=== PATIENT | male | born 1945 | race American Indian/Alaskan Native ===

== ENCOUNTER 2021-02-27 14:37 | Inpatient (IN) | payer MEDICARE ==
--- NOTE | 2021-02-27 14:50 | Event Note ---
ED Screening Note Date of service: 02/27/21 Time: 14:50 ED Screening Note: Patient complains of left-sided chest pain starting this morning States had some shortness of breath, denies any currently History of hypertension, CHF, and diabetes No new swelling per patient This initial assessment/diagnostic orders/clinical plan/treatment(s) is/are subject to change based on patients health status, clinical progression and re- assessment by fellow clinical providers in the ED. Further treatment and workup at subsequent clinical providers discretion. Patient/guardian urged not to elope from the ED as their condition may be serious if not clinically assessed and managed. Initial orders include: Labs EKG Chest x-ray
[2021-02-27 15:26] LABS: Basophils # (Auto) 0.2 K/mm3 (0.0-0.1); Basophils % (Auto) 2.3 % (0.0-1.8); Eosinophils # (Auto) 0.1 K/mm3 (0.0-0.4); Eosinophils % (Auto) 1.1 % (0.0-4.3); Hematocrit 41.1 % (35.5-45.6); Hemoglobin 13.3 gm/dl (11.8-15.2); Lymphocytes # (Auto) 1.7 K/mm3 (1.2-5.4); Lymphocytes % (Auto) 16.5 % (13.4-35.0); Mean Corpuscular HGB Conc 32 % (32-34); Mean Corpuscular Volume 88 fl (84-94); Monocytes # (Auto) 0.8 K/mm3 (0.0-0.8); Monocytes % (Auto) 7.7 % (0.0-7.3); Platelet Count 148 K/mm3 (140-440); Red Blood Count 4.66 M/mm3 (3.65-5.03); Red Cell Distribution Width 14.5 % (13.2-15.2)
--- NOTE | 2021-02-27 15:44 | XRay Report ---
CHEST 2 VIEWS INDICATION / CLINICAL INFORMATION: chest pain. COMPARISON: 05/11/2020 FINDINGS: SUPPORT DEVICES: None. HEART / MEDIASTINUM: No significant abnormality. LUNGS / PLEURA: No significant pulmonary or pleural abnormality. No pneumothorax. ADDITIONAL FINDINGS: No significant additional findings. IMPRESSION: 1. No acute findings. Signer Name: Jorge Dennis MD Signed: 02/27/2021 3:40 PM Workstation Name: [id number]
[2021-02-27 15:53] LABS: Alanine Aminotransferase 15 units/L (7-56); Albumin 3.7 g/dL (3.9-5); BUN/Creatinine Ratio 16; Blood Urea Nitrogen 19 mg/dL (9-20); Calcium 8.7 mg/dL (8.4-10.2); Hemolysis Index 11
[2021-02-27 16:06] LABS: HDL Cholesterol 47 mg/dL (40-59); LDL Cholesterol,Direct 55 mg/dL (50-130)
--- NOTE | 2021-02-27 21:14 | Emergency Department Report ---
ED Chest Pain HPI - General Chief Complaint: Chest Pain Stated Complaint: CHEST PAINS PUI?: No Time Seen by Provider: 02/27/21 21:00 Source: patient Mode of arrival: Ambulatory Limitations: No Limitations - History of Present Illness Initial Comments: Patient is a 75-year-old male who presents emergency room with complaints of s ubsternal chest pain. Patient states that the chest pain is rating to his right chest. Patient states it started this morning. Patient states the chest pain is a 4 out of 10. Patient states it is a sharp pain. Patient states the pain is worse with deep breath, exertion. Patient states the chest pain is better with rest. Patient denies fever and chills. Patient states he has a history of diabetes, hypertension, hyperlipidemia, obstructive sleep apnea, hypertension. Patient dates his last A1c was done 2 weeks ago and it was 6.4%. Patient denies recent travel. Patient denies recent international travel. Patient denies exposure to the novel coronavirus. Patient denies sick contacts. Patient denies fever and chills. Patient denies cough. Patient denies diarrhea. Patient denies coming in contact with anybody with symptoms of the novel coronavirus. MD Complaint: chest pain -: Sudden Onset: during rest Pain Location: substernal, right chest Pain Radiation: none Severity scale (0 -10): 5 Quality: sharp Consistency: constant Improves With: rest Worsens With: exertion re: dyspnea. denies: nausea, vomting, diaphoresis, sense of impending doom Other Symptoms: leg swelling. denies: cough, fever, syncope, rash, acid taste in mouth, palpitations, burping Treatments Prior to Arrival: aspirin Aspirin use within the Past 7 Days: (1) Yes - Related Data On Oral Contraceptives: No Previous Rx's Medication Instructions Recorded Last Taken Type Ondansetron [Zofran Odt] 4 mg PO Q8HR PRN #14 tab.rapdis 05/11/20 Unknown Rx traMADoL [Ultram 50 MG tab] 50 mg PO Q4HR PRN #14 tablet 05/11/20 Unknown Rx Allergies Allergy/AdvReac Type Severity Reaction Status Date / Time No Known Allergies Allergy Unverified 05/11/20 14:29 Heart Score - HEART Score History: Moderately suspicious EKG: Non-specific Age: > 65 Risk factors: > 3 risk factors or hx of atherosclerotic disease Troponin: 1-3x normal limit HEART Score: 7 - EKG Read Time Time EKG Completed: 14:55 EKG Read Time: 15:00 ED Review of Systems ROS: Stated complaint: CHEST PAINS Other details as noted in HPI Constitutional: denies: chills, fever Eyes: denies: eye pain, eye discharge, vision change ENT: denies: ear pain, throat pain Respiratory: shortness of breath. denies: cough, wheezing Cardiovascular: as per HPI, chest pain, dyspnea on exertion. denies: palpitations Endocrine: no symptoms reported Gastrointestinal: denies: abdominal pain, nausea, diarrhea Genitourinary: denies: urgency, dysuria Musculoskeletal: denies: back pain, joint swelling, arthralgia Skin: denies: rash, lesions Neurological: denies: headache, weakness, paresthesias Psychiatric: denies: anxiety, depression Hematological/Lymphatic: denies: easy bleeding, easy bruising ED Past Medical Hx - Past Medical History Previous Medical History?: Yes Hx Hypertension: Yes Hx Congestive Heart Failure: Yes - Surgical History Past Surgical History?: Yes Additional Surgical History: KNEE REPLACEMENT X 2 AND 6 BACK SURGERIES - Family History Family history: no significant - Social History Smoking Status: Never Smoker Substance Use Type: None - Medications Home Medications: Home Medications Medication Instructions Recorded Confirmed Last Taken Type Ondansetron [Zofran Odt] 4 mg PO Q8HR PRN #14 tab.rapdis 05/11/20 Unknown Rx traMADoL [Ultram 50 MG tab] 50 mg PO Q4HR PRN #14 tablet 05/11/20 Unknown Rx ED Physical Exam - General Limitations: No Limitations General appearance: alert, in no apparent distress - Head Head exam: Present: atraumatic, normocephalic - Eye Eye exam: Present: normal appearance - ENT ENT exam: Present: mucous membranes moist - Neck Neck exam: Present: normal inspection - Respiratory Respiratory exam: Present: normal lung sounds bilaterally. Absent: respiratory distress, wheezes, rales - Cardiovascular Cardiovascular Exam: Present: regular rate, normal rhythm. Absent: systolic murmur, diastolic murmur, rubs, gallop - GI/Abdominal GI/Abdominal exam: Present: soft, normal bowel sounds. Absent: distended, tenderness, guarding - Rectal Rectal exam: Present: deferred - Extremities Exam Extremities exam: Present: normal inspection - Back Exam Back exam: Present: normal inspection - Neurological Exam Neurological exam: Present: alert, oriented X3 - Psychiatric Psychiatric exam: Present: normal affect, normal mood - Skin Skin exam: Present: warm, dry, intact, normal color. Absent: rash ED Course Vital Signs 02/27/21 14:48 Temperature 98.3 F Pulse Rate 69 Respiratory 20 Rate Blood Pressure 163/74 [Right] O2 Sat by Pulse 97 Oximetry - Reevaluation(s) Reevaluation #1: I discussed all results with patient. I discussed plan of care with patient. Patient agrees with plan of care and admission. Patient to be admitted to the hospitalist service. 02/27/21 21:25 - Consultations Consultation #1: hospitalist consulted for admission. Hospitalist to admit patient. 02/27/21 21:26 MEENU score - Meenu Score Age > 65: (1) Yes Aspirin use within the Past 7 Days: (0) No 3 or more CAD Risk Factors: (1) Yes 2 or more Angina events in past 24 hrs: (0) No Known CAD with more than 50% Stenosis: (0) No Elevated Cardiac Markers: (1) Yes ST Deviation Greater than 0.5mm: (0) No MEENU Score: 3 ED Medical Decision Making - Lab Data Result diagrams: 02/27/21 15:03 02/27/21 15:03 - EKG Data -: EKG Interpreted by Me EKG shows normal: sinus rhythm, axis, intervals, ST-T waves Rate: normal - EKG Data Interpretation: LVH, other (lbbb) - Radiology Data Radiology results: report reviewed, image reviewed interpreted by me: Chest x-ray: No pneumonia, no pneumothorax, no foreign body, no osseous findings, no acute findings CHEST 2 VIEWS INDICATION / CLINICAL INFORMATION: chest pain. COMPARISON: 05/11/2020 FINDINGS: SUPPORT DEVICES: None. HEART / MEDIASTINUM: No significant abnormality. LUNGS / PLEURA: No significant pulmonary or pleural abnormality. No pneumothorax. ADDITIONAL FINDINGS: No significant additional findings. IMPRESSION: 1. No acute findings. - Medical Decision Making Patient is a 75-year-old male who presents emergency room with complaints of chest pain and shortness of breath. Patient symptoms started earlier in the day of the visit. Patient had labs done which were essentially unremarkable except for an elevated troponin. Patient second troponin was negative. Patient's BMP shows mild elevation. Patient had a chest x-ray which was negative for acute findings. No CHF changes. Patient had an EKG done which showed a left bundle branch block. No ST changes. I personally reviewed the EKG and the chest x- ray. Patient is high risk and has multiple cardiac comorbidities. Patient will be admitted to the hospital service for further evaluation and treatment and rule out ACS. Critical care time documented due to the multiple reassessments, prolonged time at the bedside, interpretation of diagnostics and labs. - Differential Diagnosis acs, chest pain, shortness of breath, volume overload, Critical Care Time: Yes Critical care time in (mins) excluding proc time.: 35 Critical care attestation.: If time is entered above; I have spent that time in minutes in the direct care of this critically ill patient, excluding procedure time. Critical Care Time: 35 minutes ED Disposition Clinical Impression: SOB (shortness of breath), Elevated troponin Chest pain Qualifiers: Chest pain type: unspecified Qualified Code(s): R07.9 - Chest pain, unspecified Disposition: 09 OP ADMIT IP TO THIS HOSP Is pt being admited?: Yes Does the pt Need Aspirin: No Condition: Critical Time of Disposition: 21:35
[2021-02-27] MEDS ORDERED: ASPIRIN 325 MG TAB PO ONE (21:17)
--- NOTE | 2021-02-27 22:20 | History and Physical Report ---
History of Present Illness Date of examination: 02/27/21 Date of admission: 02/27/21 21:31 Chief complaint: chest pain Shortness of breath History of present illness: Patient is a 75-year-old male who presents emergency room with complaints of substernal chest pain. Patient states that the chest pain is rating to his right chest. Patient states it started this morning. Patient states the chest pain is a 4 out of 10. Patient states it is a sharp pain. Patient states the pain is worse with deep breath, exertion. Patient states the chest pain is better with rest. Patient denies fever and chills. Patient states he has a history of diabetes, hypertension, hyperlipidemia, obstructive sleep apnea, hypertension. Patient dates his last A1c was done 2 weeks ago and it was 6.4%. ED work-up WBC 10.5, hemoglobin 13.3 hematocrit 41.1, platelets 148, sodium 135, potassium 3.8, creatinine 1.2, serum glucose 111, troponin less than 0.01, albumin 3.7, lipid profile within normal level. Chest x-ray done no acute finding. Patient seen in ED at bedside alert and oriented x3 bilateral lower leg edema noted. Patient came with chest pain, he reports chest pain pain level of 8/10 at the time of assessment. Patient is on sublingual nitrates as needed for chest pain he reported history of diabetes CAD hyperlipidemia on statin, history of high blood pressure and sleep apnea. Patient also has a history of bilateral knee replacements. He denies alcohol, illicit drug use, and tobacco use. I reviewed patient medical record, medical record and vital signs. Director Of [employer] consulted and echocardiogram ordered. Past History Past Medical History: CAD, diabetes, heart failure, hyperlipidemia, other (sleep apnea) Past Surgical History: total knee replacement Social history: Lives alone Family history: diabetes, hypertension Medications and Allergies Allergies Allergy/AdvReac Type Severity Reaction Status Date / Time No Known Allergies Allergy Unverified 05/11/20 14:29 Home Medications Medication Instructions Recorded Confirmed Last Taken Type Aspirin [Adult Aspirin] 81 mg PO DAILY 02/27/21 02/27/21 Unknown History Docusate Sodium [Colace] 100 mg PO BID 02/27/21 02/27/21 Unknown History Ergocalciferol (Vitamin D2) 50 mcg PO DAILY 02/27/21 02/27/21 Unknown History [Vitamin D2] Furosemide [Lasix TAB] 40 mg PO QDAY 02/27/21 02/27/21 Unknown History Glimepiride [Amaryl] 2 mg PO DAILY 02/27/21 02/27/21 Unknown History Hydralazine HCl 50 mg PO BID 02/27/21 02/27/21 Unknown History Isosorbide Dinitrate [Isosorbide 40 mg PO DAILY 02/27/21 02/27/21 Unknown History Dinitrate ER] Simvastatin 20 mg PO DAILY 02/27/21 02/27/21 Unknown History amLODIPine [Norvasc] 5 mg PO DAILY 02/27/21 02/27/21 Unknown History carvediloL [Coreg] 25 mg PO BID 02/27/21 02/27/21 Unknown History lisinopriL [Zestril TAB] 40 mg PO QDAY 02/27/21 02/27/21 Unknown History Review of Systems Constitutional: fatigue, weakness Ears, nose, mouth and throat: no epistaxis, no bleeding gums, no dental pain Cardiovascular: chest pain, edema, shortness of breath, high blood pressure, leg edema Respiratory: shortness of breath Gastrointestinal: no abdominal pain Genitourinary Male: no dysuria Rectal: no pain Musculoskeletal: no neck stiffness, no neck pain Integumentary: no rash, no pruritis Neurological: no head injury Psychiatric: no suicidal ideation, no disorientation Endocrine: no polyuria Hematologic/Lymphatic: no easy bruising, no easy bleeding Allergic/Immunologic: no urticaria Exam - Constitutional Vitals: Temp Pulse Resp BP Pulse Ox 98.3 F 67 18 166/83 100 02/27/21 14:48 02/27/21 21:45 02/27/21 21:56 02/27/21 21:45 02/27/21 21:56 General appearance: Present: mild distress, obese - EENT Eyes: Present: PERRL ENT: hearing intact, clear oral mucosa - Neck Neck: Present: supple, normal ROM - Respiratory Respiratory effort: normal Respiratory: bilateral: CTA - Cardiovascular Heart rate: 67 Heart Sounds: Present: S1 & S2. Absent: rub, click - Extremities Extremities: pulses symmetrical, No edema Peripheral Pulses: within normal limits - Abdominal General gastrointestinal: Present: soft, non-tender, non-distended, normal bowel sounds Male genitourinary: Present: normal - Integumentary Integumentary: Present: clear, warm, dry - Musculoskeletal Musculoskeletal: gait normal, strength equal bilaterally - Psychiatric Psychiatric: appropriate mood/affect, intact judgment & insight, cooperative - Neurologic Neurologic: CNII-XII intact, moves all extremities - Allied Health Allied health notes reviewed: nursing HEART Score - HEART Score EKG: Non-specific Age: > 65 Risk factors: > 3 risk factors or hx of atherosclerotic disease Troponin: Troponin T < 0.010 ng/mL (0.00-0.029) 02/27/21 17:55 Troponin: 1-3x normal limit Results - Labs CBC & Chem 7: 02/27/21 15:03 02/27/21 15:03 Labs: Abnormal lab results 02/27/21 02/27/21 Range/Units 15:03 15:03 [place] % (Auto) 7.7 H (0.0-7.3) % Baso % (Auto) 2.3 H (0.0-1.8) % Baso # (Auto) 0.2 H (0.0-0.1) K/mm3 Seg Neutrophils % 72.4 H (40.0-70.0) % Sodium 135 L (137-145) mmol/L Glucose 111 H (75-100) mg/dL Troponin T 0.063 H (0.00-0.029) ng/mL Albumin 3.7 L (3.9-5) g/dL Assessment and Plan - Patient Problems (1) Chest pain Current Visit: Yes Status: Acute Qualifiers: Chest pain type: unspecified Qualified Code(s): R07.9 - Chest pain, unsp ecified Plan to address problem: Continue cardioprotective measures Antiplatelet, BB, statin, and diuretics Echocardiogram ordered and planning associate consulted. (2) SOB (shortness of breath) Current Visit: Yes Status: Acute Plan to address problem: Shortness of breath secondary to CHF Patient diuretics. Monitor ABG and will place on oxygen supplement if needed (3) Diabetes Current Visit: Yes Status: Acute Plan to address problem: Monitor blood sugar with sliding scale protocol Check hemoglobin A1c We will resume home antihyperglycemic agent (4) Hypertension Current Visit: Yes Status: Acute Plan to address problem: Monitor blood pressure level Resume home antihypertensive (5) DVT prophylaxis Current Visit: Yes Status: Acute Plan to address problem: Subcutaneous Lovenox (6) Full code status Current Visit: Yes Status: Acute Plan to address problem: Patient is full code
[2021-02-27] MEDS ORDERED: ALUM-MAG HYDROXIDE-SIMETHICONE 200-200-20MG/5ML ORAL LIQD 30 ML PO PRN (22:23)
[2021-02-27] MEDS ORDERED: ONDANSETRON 4 MG/2 ML INJ IV PRN (22:23)
[2021-02-27] MEDS ORDERED: ACETAMINOPHEN 325 MG TAB PO PRN (22:23)
[2021-02-27] MEDS ORDERED: METOCLOPRAMIDE 10 MG/2 ML INJ IV PRN (22:23)
[2021-02-27] MEDS ORDERED: NITROGLYCERIN 0.4 MG TAB SUBL SL PRN (22:23)
[2021-02-27] MEDS ORDERED: MAGNESIUM HYDROXIDE (MOM) ORAL LIQD UDC PO PRN (22:23)
[2021-02-27] MEDS ORDERED: traMADol 50 MG TAB PO PRN (22:35)
[2021-02-27] MEDS ORDERED: traZODone 50 MG TAB PO PRN (22:35)
[2021-02-27] MEDS ORDERED: hydrALAZINE 20 MG/1 ML INJ IV PRN (22:37)
[2021-02-28] MEDS ORDERED: hydrALAZINE 20 MG/1 ML INJ IV PRN (00:48)
[2021-02-28 03:16] LABS: Basophils % (Auto) 0.4 % (0.0-1.8); Eosinophils # (Auto) 0.1 K/mm3 (0.0-0.4); Eosinophils % (Auto) 1.5 % (0.0-4.3); Hematocrit 39.7 % (35.5-45.6); Hemoglobin 13.1 gm/dl (11.8-15.2); Lymphocytes # (Auto) 1.7 K/mm3 (1.2-5.4); Lymphocytes % (Auto) 17.9 % (13.4-35.0); Mean Corpuscular HGB Conc 33 % (32-34); Mean Corpuscular Volume 89 fl (84-94); Monocytes # (Auto) 0.9 K/mm3 (0.0-0.8); Platelet Count 119 K/mm3 (140-440); Red Blood Count 4.44 M/mm3 (3.65-5.03); Red Cell Distribution Width 14.7 % (13.2-15.2)
[2021-02-28 03:32] LABS: BUN/Creatinine Ratio 14; Blood Urea Nitrogen 15 mg/dL (9-20); Calcium 8.6 mg/dL (8.4-10.2); Hemolysis Index 9
[2021-02-28] MEDS: FUROSEMIDE 40 MG/4 ML INJ IV SCH ×2 (06:23→17:47)
[2021-02-28] MEDS ORDERED: POTASSIUM CHLORIDE 10 MEQ 10 MEQ/100 ML BAG IV SCH (08:00)
[2021-02-28] MEDS ORDERED: POTASSIUM CHLORIDE ER 20 MEQ TAB PO NR (08:32)
[2021-02-28 10:37] LABS: Bacteria,Urine 1+ /HPF (Negative); Bilirubin,Urine NEG (Negative); Blood,Urine NEG (Negative); Calcium Oxalate Crystals,Urine 1+; Color,Urine Straw (Yellow); Mucus,Urine FEW /HPF; Protein,Urine <15 mg/dL mg/dL (Negative); RBC,Urine < 1.0 /HPF (0.0-6.0); Urobilinogen,Urine < 2.0 mg/dL (<2.0)
--- NOTE | 2021-02-28 10:41 | Consultation ---
History of Present Illness Consult date: 02/28/21 Requesting physician: FRAN ROCK Consult reason: chest pain History of present illness: 75-year-old male with osteoarthritis hypertension history of nonischemic cardiomyopathy echo done in April in [place] [facility] shows normal LV function patient had cardiac catheterization in [place] 10 years ago shows normal coronaries for nonischemic cardiomyopathy. Patient presents with chest pain over 24 hours ago on exam is reproducible with deep inspiration and palpation. Patient would hurt when his arms would move. Patient was given tramadol with improvement. Patient mobility is limited because of his osteoarthritis. Uses a walker. Patient gets problems with more than 50 feet. Denies any nausea vomiting fever chills or syncope. Patient initial troponin was elevated but repeat was negative EKG is incomplete left bundle no change from EKG done with [place] [facility] Past History Past Medical History: CAD, diabetes, heart failure, hyperlipidemia, other (sleep apnea) Past Surgical History: total knee replacement Social history: Lives alone Family history: diabetes, hypertension Medications and Allergies Allergies Allergy/AdvReac Type Severity Reaction Status Date / Time No Known Allergies Allergy Unverified 05/11/20 14:29 Home Medications Medication Instructions Recorded Confirmed Last Taken Type Aspirin [Adult Aspirin] 81 mg PO DAILY 02/27/21 02/27/21 Unknown History Docusate Sodium [Colace] 100 mg PO BID 02/27/21 02/27/21 Unknown History Ergocalciferol (Vitamin D2) 50 mcg PO DAILY 02/27/21 02/27/21 Unknown History [Vitamin D2] Furosemide [Lasix TAB] 40 mg PO QDAY 02/27/21 02/27/21 Unknown History Glimepiride [Amaryl] 2 mg PO DAILY 02/27/21 02/27/21 Unknown History RX: Hydralazine HCl 50 mg PO BID 02/27/21 02/27/21 Unknown History RX: Isosorbide Dinitrate 40 mg PO DAILY 02/27/21 02/27/21 Unknown History [Isosorbide Dinitrate ER] RX: Simvastatin 20 mg PO DAILY 02/27/21 02/27/21 Unknown History amLODIPine [Norvasc] 5 mg PO DAILY 02/27/21 02/27/21 Unknown History carvediloL [Coreg] 25 mg PO BID 02/27/21 02/27/21 Unknown History lisinopriL [Zestril TAB] 40 mg PO QDAY 02/27/21 02/27/21 Unknown History Active Meds: Active Medications Acetaminophen (Acetaminophen 325 Mg Tab) 650 mg PO Q4H PRN PRN Reason: Pain MILD(1-3)/Fever >100.5/WYLIE Al Hydrox/Mg Hydrox/Simethicone (Alum-Mag Hydroxide-Simethicone [id number]/5ml Oral Liqd 30 Ml) 30 ml PO Q4H PRN PRN Reason: Indigestion Aspirin (Aspirin Ec 81 Mg Tab) 81 mg PO QDAY [facility] Atorvastatin Calcium (Atorvastatin 40 Mg Tab) 40 mg PO QHS BACILIO Cholecalciferol (Cholecalciferol (Vit D3) 1000 Unit (25 Mcg) Tab) 1,000 unit PO QDAY BACILIO Enoxaparin Sodium (Enoxaparin 40 Mg/0.4 Ml Inj) 40 mg SUB-Q QDAY BACILIO; Protocol Famotidine (Famotidine 20 Mg/2 Ml Inj) 20 mg IV BID BACILIO Furosemide (Furosemide 40 Mg/4 Ml Inj) 40 mg IV BID@0600,1800 [facility] Last Admin: 02/28/21 06:23 Dose: 40 mg Documented by: Glimepiride (Glimepiride 2 Mg Tab) 2 mg PO QDDIAB [facility] Hydralazine HCl (Hydralazine 20 Mg/1 Ml Inj) 5 mg IV Q4H PRN PRN Reason: Hypertension Hydralazine HCl (Hydralazine 20 Mg/1 Ml Inj) 5 mg IV Q4H PRN PRN Reason: Hypertension Magnesium Hydroxide (Magnesium Hydroxide (Mom) Oral Liqd Udc) 30 ml PO Q4H PRN PRN Reason: Constipation Metoclopramide HCl (Metoclopramide 10 Mg/2 Ml Inj) 10 mg IV Q6H PRN PRN Reason: Nausea And Vomiting Nitroglycerin (Nitroglycerin 0.4 Mg Tab Subl) 0.4 mg SL .Q5MIN PRN PRN Reason: Chest Pain Ondansetron HCl (Ondansetron 4 Mg/2 Ml Inj) 4 mg IV Q8H PRN PRN Reason: Nausea And Vomiting Potassium Chloride (Potassium Chloride Er 20 Meq Tab) 40 meq PO QDAY B[facility]ILIO Potassium Chloride (Potassium Chloride Er 20 Meq Tab) 40 meq PO ONCE NR Stop: 02/28/21 11:00 Senna (Sennosides 8.6 Mg Tab) 8.6 mg PO Q12HR [facility] Sodium Chloride (Sodium Chloride 0.9% 10 Ml Flush Syringe) 10 ml IV BID BACILIO Sodium Chloride (Sodium Chloride 0.9% 10 Ml Flush Syringe) 10 ml IV PRN PRN PRN Reason: LINE FLUSH Tramadol HCl (Tramadol 50 Mg Tab) 50 mg PO Q4H PRN PRN Reason: Pain, Moderate (4-6) Last Admin: 02/28/21 08:31 Dose: 50 mg Documented by: Trazodone HCl (Trazodone 50 Mg Tab) 50 mg PO QHS PRN PRN Reason: Insomnia Review of Systems All systems: negative (As per the HPI) Physical Examination Vital Signs Temp Pulse Resp BP Pulse Ox 98.3 F 69 20 163/74 97 02/27/21 14:48 02/27/21 14:48 02/27/21 14:48 02/27/21 14:48 02/27/21 14:48 General appearance: no acute distress, well-nourished HEENT: Positive: PERRL, Mucus Membranes Moist Neck: Positive: neck supple, trachea midline Cardiac: Positive: Reg Rate and Rhythm, S1/S2. Negative: Audible Murmur Lungs: Positive: clear to auscultation, Normal Breath Sounds Neuro: Positive: Grossly Intact Abdomen: Positive: Soft, Active Bowel Sounds. Negative: Tender, Distended Male genitourinary: Positive: normal Skin: Positive: Clear Incision: Cardiac Cath Site Musculoskeletal: No Pain, Normal Range of Motion Extremities: Present: normal. Absent: edema Results 02/28/21 02:41 02/28/21 02:41 Cardiac Enzymes 02/27/21 Range/Units 15:03 AST 14 (5-40) units/L Lipids 02/27/21 Range/Units 15:03 Triglycerides 97 (2-149) mg/dL Cholesterol 113 (50-199) mg/dL HDL Cholesterol 47 (40-59) mg/dL Cholesterol/HDL Ratio 2.40 % CBC 02/27/21 02/28/21 Range/Units 15:03 02:41 WBC 10.5 9.3 (4.5-11.0) K/mm3 RBC 4.66 4.44 (3.65-5.03) M/mm3 Hgb 13.3 13.1 (11.8-15.2) gm/dl Hct 41.1 39.7 (35.5-45.6) % Plt Count 148 119 L (140-440) K/mm3 Lymph # (Auto) 1.7 1.7 (1.2-5.4) K/mm3 [place] # (Auto) 0.8 0.9 H (0.0-0.8) K/mm3 Eos # (Auto) 0.1 0.1 (0.0-0.4) K/mm3 Baso # (Auto) 0.2 H 0.0 (0.0-0.1) K/mm3 Comprehensive Metabolic Panel 02/27/21 02/28/21 Range/Units 15:03 02:41 Sodium 135 L 138 (137-145) mmol/L Potassium 3.8 3.5 L (3.6-5.0) mmol/L Chloride 103.2 103.4 (98-107) mmol/L Carbon Dioxide 22 22 (22-30) mmol/L BUN 19 15 (9-20) mg/dL Creatinine 1.2 1.1 (0.8-1.3) mg/dL Glucose 111 H 107 H (75-100) mg/dL Calcium 8.7 8.6 (8.4-10.2) mg/dL AST 14 (5-40) units/L ALT 15 (7-56) units/L Alkaline Phosphatase 87 (35-129) units/L Total Protein 7.0 (6.3-8.2) g/dL Albumin 3.7 L (3.9-5) g/dL EKG interpretations - Telemetry EKG Rhythm: Sinus Rhythm (Sinus rhythm incomplete left bundle) Assessment and Plan 75-year-old male with morbid obesity obesity hypoventilation nonischemic cardiomyopathy with normalization of LV function reproducible chest pain on palpation inspiration chronic debilitation secondary osteoarthritis use a walker abnormal EKG sinus rhythm incomplete left bundle has normal LV function echocardiogram done in April 2020 initial troponin was elevated but repeat was negative repeat that if negative may be discharged from cardiovascular point of view we will give patient anti-inflammatories patient advised to follow-up in the office. - Patient Problems (1) Chest pain Current Visit: Yes Status: Acute Qualifiers: Chest pain type: chest pain on breathing Qualified Code(s): R07.1 - Chest pain on breathing; R07.81 - Pleurodynia (2) Diabetes Current Visit: Yes Status: Chronic Qualifiers: Diabetes mellitus type: type 2 (3) Hypertension Current Visit: Yes Status: Chronic Qualifiers: Hypertension type: essential hypertension Qualified Code(s): I10 - Essential (primary) hypertension (4) SOB (shortness of breath) Current Visit: Yes Status: Chronic (5) Sleep apnea Current Visit: Yes Status: Acute
[2021-02-28] MEDS: ENOXAPARIN 40 MG/0.4 ML INJ SUB-Q SCH (10:49)
[2021-02-28] MEDS: POTASSIUM CHLORIDE ER 20 MEQ TAB PO SCH (10:49)
[2021-02-28] MEDS: CHOLECALCIFEROL (VIT D3) 1000 UNIT (25 mcg) TAB PO SCH (10:49)
[2021-02-28] MEDS: ASPIRIN EC 81 MG TAB PO SCH (10:49)
[2021-02-28] MEDS: FAMOTIDINE 20 MG/2 ML INJ IV SCH ×2 (10:49→22:30)
[2021-02-28] MEDS: SENNOSIDES 8.6 MG TAB PO SCH ×2 (10:49→22:30)
[2021-02-28] MEDS: GLIMEPIRIDE 2 MG TAB PO SCH (10:55)
--- NOTE | 2021-02-28 13:19 | Discharge Summary ---
Providers - Providers Date of Admission: 02/27/21 21:31 Date of discharge: 02/28/21 Attending physician: FRAN ROCK 02/27/21 22:28 Consult to Physician [CONS] Stat Comment: Consulting Provider: DANIEL KRISHNAMURTHY Physician Instructions: Reason For Exam: chest pain Primary care physician: HOME CARE MUSIC THERAPIST Hospitalization Condition: Critical Hospital course: Patient is a 75-year-old male who presents emergency room with complaints of substernal chest pain. Patient states that the chest pain is rating to his right chest. Patient states it started this morning. Patient states the chest pain is a 4 out of 10. Patient states it is a sharp pain. Patient states the pain is worse with deep breath, exertion. Patient states the chest pain is better with rest. Patient denies fever and chills. Patient states he has a history of diabetes, hypertension, hyperlipidemia, obstructive sleep apnea, hypertension. Patient dates his last A1c was done 2 weeks ago and it was 6.4%. ED work-up WBC 10.5, hemoglobin 13.3 hematocrit 41.1, platelets 148, sodium 135, potassium 3.8, creatinine 1.2, serum glucose 111, troponin less than 0.01, albumin 3.7, lipid profile within normal level. Chest x-ray done no acute finding. Patient seen in ED at bedside alert and oriented x3 bilateral lower leg edema noted. Patient came with chest pain, he reports chest pain pain level of 8/10 at the time of assessment. Patient is on sublingual nitrates as needed for chest pain he reported history of diabetes CAD hyperlipidemia on statin, history of high blood pressure and sleep apnea. Patient also has a history of bilateral knee replacements. He denies alcohol, illicit drug use, and tobacco use. I reviewed patient medical record, medical record and vital signs. Strategy Intern consulted and echocardiogram ordered. Hospital course Patient's repeat troponin remain negative. He denies any significant chest pain and has discomfort around the right side of the chest that is reproducible on palpation. Patient will be prescribed anti-inflammatory agents and will follow up with cardiology in the office. He agrees with management Disposition: TO HOME OR SELFCARE Final Discharge Diagnosis (Prints w/discharge instructions): Chest pain- musculoskeletal Time spent for discharge: 20 minutes Core Measure Documentation - Palliative Care Palliative Care/ Comfort Measures: Not Applicable - Core Measures Any of the following diagnoses?: none Exam - Physical Exam Narrative exam: VITAL SIGNS: Reviewed. GENERAL: Awake HEAD: No signs of head trauma. EYES: Pupils are equal. Extraocular motions intact. MOUTH: Oropharynx is normal. NECK: No adenopathy, no JVD. CHEST: Chest with diminished breath sounds bilaterally. No wheezes, rales, or rhonchi. CARDIAC: normal S1 and S2, without murmurs, gallops, or rubs. ABDOMEN: Soft, non tender and non distended. No rebound or guarding, and no masses palpated. Bowel Sounds normal. MUSCULOSKELETAL: No edema NEUROLOGIC EXAM: Alert and oriented x3. No focal neurologic deficits SKIN: No obvious lesions - Constitutional Vitals: Temp Pulse Resp BP Pulse Ox 98.7 F 74 20 191/84 100 02/28/21 07:45 02/28/21 12:00 02/28/21 07:45 02/28/21 07:45 02/28/21 07:45 Plan Diet: low fat, low cholesterol, low salt, diabetic Additional Instructions: Continue naproxen as ordered. Follow-up with cardiology team [] in the office in 1 week. Phone number [phone] Follow up with: DELFINA BREWER MD [Primary Care Provider] - 3-5 Days TOMI PEARCE MD [Staff Physician] - 7 Days Prescriptions: Naproxen 500 mg PO BID #6 tablet
[2021-03-01] MEDS: FUROSEMIDE 40 MG/4 ML INJ IV SCH (05:57)
[2021-03-01] MEDS: ASPIRIN EC 81 MG TAB PO SCH (09:19)
[2021-03-01] MEDS: SENNOSIDES 8.6 MG TAB PO SCH ×2 (09:19→22:37)
[2021-03-01] MEDS: CHOLECALCIFEROL (VIT D3) 1000 UNIT (25 mcg) TAB PO SCH (09:19)
[2021-03-01] MEDS: FAMOTIDINE 20 MG/2 ML INJ IV SCH ×2 (09:19→22:38)
[2021-03-01] MEDS: GLIMEPIRIDE 2 MG TAB PO SCH (09:19)
[2021-03-01] MEDS: ENOXAPARIN 40 MG/0.4 ML INJ SUB-Q SCH (09:20)
[2021-03-01] MEDS: POTASSIUM CHLORIDE ER 20 MEQ TAB PO SCH (09:22)
--- NOTE | 2021-03-01 10:36 | Progress Note ---
Assessment and Plan Assessment and plan: #Chest pain Troponin slightly positive Cardiology on board Plan for stress test tomorrow N.p.o. after midnight #Congestive heart failure Patient is chronically short of breath Continue medication #Diabetes mellitus Continue insulin regimen #Hypertension Continue blood pressure medication #DVT prophylaxis-Lovenox History Interval history: 75-year-old male with a medical history of diabetes, coronary artery disease, hyperlipidemia, hypertension, ANNIA, bilateral knee replacements, chronic back pain who presents emergency room with complaints of substernal chest pain. Patient states that the chest pain is rating to his right chest. He rates it at 4/10 in severity. Due to his symptoms, he presented to the hospital. He had the ER, his EKG showed no acute changes. His troponin was 0.06. He was admitted to the hospital for evaluation. Cardiology consulted 02/28. Patients repeat troponin was 0.01. Repeat troponin after this was 0.06. Discharge cancelled. Plan for stress test on Thursday 03/01. He denies any chest pain this AM. Cardiology following. Possible stress test tomorrow Hospitalist Physical - Physical exam Narrative exam: VITAL SIGNS: Reviewed. GENERAL: Awake HEAD: No signs of head trauma. EYES: Pupils are equal. Extraocular motions intact. MOUTH: Oropharynx is normal. NECK: No adenopathy, no JVD. CHEST: Chest with diminished breath sounds bilaterally. No wheezes, rales, or rhonchi. CARDIAC: normal S1 and S2, without murmurs, gallops, or rubs. ABDOMEN: Soft, non tender and non distended. No rebound or guarding, and no masses palpated. Bowel Sounds normal. MUSCULOSKELETAL: No edema NEUROLOGIC EXAM: Alert and oriented x3. No focal neurologic deficits SKIN: No obvious lesions - Constitutional Vitals: Temp Pulse Resp BP Pulse Ox 98.7 F 83 18 173/76 94 03/01/21 08:08 03/01/21 08:08 03/01/21 08:08 03/01/21 09:40 03/01/21 08:08 HEART Score - HEART Score EKG: Non-specific Age: > 65 Risk factors: > 3 risk factors or hx of atherosclerotic disease Troponin: Troponin T 0.068 ng/mL (0.00-0.029) H D 02/28/21 14:09 Troponin: 1-3x normal limit Results - Labs CBC & Chem 7: 02/28/21 02:41 02/28/21 02:41 Labs: Laboratory Last Values WBC 9.3 K/mm3 (4.5-11.0) 02/28/21 02:41 RBC 4.44 M/mm3 (3.65-5.03) 02/28/21 02:41 Hgb 13.1 gm/dl (11.8-15.2) 02/28/21 02:41 Hct 39.7 % (35.5-45.6) 02/28/21 02:41 MCV 89 fl (84-94) 02/28/21 02:41 MCH 30 pg (28-32) 02/28/21 02:41 MCHC 33 % (32-34) 02/28/21 02:41 RDW 14.7 % (13.2-15.2) 02/28/21 02:41 Plt Count 119 K/mm3 (140-440) L 02/28/21 02:41 Lymph % (Auto) 17.9 % (13.4-35.0) 02/28/21 02:41 [place] % (Auto) 10.0 % (0.0-7.3) H 02/28/21 02:41 Eos % (Auto) 1.5 % (0.0-4.3) 02/28/21 02:41 Baso % (Auto) 0.4 % (0.0-1.8) 02/28/21 02:41 Lymph # (Auto) 1.7 K/mm3 (1.2-5.4) 02/28/21 02:41 [place] # (Auto) 0.9 K/mm3 (0.0-0.8) H 02/28/21 02:41 Eos # (Auto) 0.1 K/mm3 (0.0-0.4) 02/28/21 02:41 Baso # (Auto) 0.0 K/mm3 (0.0-0.1) 02/28/21 02:41 Seg Neutrophils % 70.2 % (40.0-70.0) H 02/28/21 02:41 Seg Neutrophils # 6.5 K/mm3 (1.8-7.7) 02/28/21 02:41 Sodium 138 mmol/L (137-145) 02/28/21 02:41 Potassium 3.5 mmol/L (3.6-5.0) L 02/28/21 02:41 Chloride 103.4 mmol/L (98-107) 02/28/21 02:41 Carbon Dioxide 22 mmol/L (22-30) 02/28/21 02:41 Anion Gap 16 mmol/L 02/28/21 02:41 BUN 15 mg/dL (9-20) 02/28/21 02:41 Creatinine 1.1 mg/dL (0.8-1.3) 02/28/21 02:41 Estimated GFR > 60 ml/min 02/28/21 02:41 BUN/Creatinine Ratio 14 % 02/28/21 02:41 Glucose 107 mg/dL (75-100) H 02/28/21 02:41 Hemoglobin A1c 6.9 % (4-6) H 02/28/21 02:41 Calcium 8.6 mg/dL (8.4-10.2) 02/28/21 02:41 Total Bilirubin 0.30 mg/dL (0.1-1.2) 02/27/21 15:03 AST 14 units/L (5-40) 02/27/21 15:03 ALT 15 units/L (7-56) 02/27/21 15:03 Alkaline Phosphatase 87 units/L (35-129) 02/27/21 15:03 Troponin T 0.068 ng/mL (0.00-0.029) H D 02/28/21 14:09 NT-Pro-B Natriuret Pep 586.0 pg/mL (0-900) 02/27/21 15:03 Total Protein 7.0 g/dL (6.3-8.2) 02/27/21 15:03 Albumin 3.7 g/dL (3.9-5) L 02/27/21 15:03 Albumin/Globulin Ratio 1.1 % 02/27/21 15:03 Triglycerides 97 mg/dL (2-149) 02/27/21 15:03 Cholesterol 113 mg/dL (50-199) 02/27/21 15:03 LDL Cholesterol Direct 55 mg/dL (50-130) 02/27/21 15:03 HDL Cholesterol 47 mg/dL (40-59) 02/27/21 15:03 Cholesterol/HDL Ratio 2.40 % 02/27/21 15:03 Urine Color Straw (Yellow) 02/28/21 Unknown Urine Turbidity Clear (Clear) 02/28/21 Unknown Urine pH 5.0 (5.0-7.0) 02/28/21 Unknown Ur Specific [place] 1.006 (1.003-1.030) 02/28/21 Unknown Urine Protein <15 mg/dl mg/dL (Negative) 02/28/21 Unknown Urine Glucose (UA) Neg mg/dL (Negative) 02/28/21 Unknown Urine Ketones Neg mg/dL (Negative) 02/28/21 Unknown Urine Blood Neg (Negative) 02/28/21 Unknown Urine Nitrite Neg (Negative) 02/28/21 Unknown Urine Bilirubin Neg (Negative) 02/28/21 Unknown Urine Urobilinogen < 2.0 mg/dL (<2.0) 02/28/21 Unknown Ur Leukocyte Esterase Neg (Negative) 02/28/21 Unknown Urine WBC (Auto) 1.0 /HPF (0.0-6.0) 02/28/21 Unknown Urine RBC (Auto) < 1.0 /HPF (0.0-6.0) 02/28/21 Unknown Urine Bacteria (Auto) 1+ /HPF (Negative) 02/28/21 Unknown Calcium Oxalate Crystal 1+ 02/28/21 Unknown Urine Mucus Few /HPF 02/28/21 Unknown Gregory/IV: Voiding Method Toilet Active Medications - Current Medications Current Medications: Generic Name Dose Route Start Last Admin Trade Name Freq PRN Reason Stop Dose Admin Acetaminophen 650 mg 02/27/21 22:23 Acetaminophen 325 Mg Tab PO Q4H PRN Pain MILD(1-3)/Fever >100.5/WYLIE Al Hydrox/Mg Hydrox/Simethicone 30 ml 02/27/21 22:23 Alum-Mag Hydroxide-Simethicone [phone]/5ml Oral Liqd 30 Ml PO Q4H PRN Indigestion Aspirin 81 mg 02/28/21 10:00 03/01/21 09:19 Aspirin Ec 81 Mg Tab PO 81 mg QDAY BACILIO Administration Atorvastatin Calcium 40 mg 02/28/21 22:00 02/28/21 22:30 Atorvastatin 40 Mg Tab PO 40 mg QHS BACILIO Administration Cholecalciferol 1,000 unit 02/28/21 10:00 03/01/21 09:19 Cholecalciferol (Vit D3) 1000 Unit (25 Mcg) Tab PO 1,000 unit QDAY BACILIO Administration Enoxaparin Sodium 40 mg 02/28/21 10:00 03/01/21 09:20 Enoxaparin 40 Mg/0.4 Ml Inj SUB-Q 40 mg QDAY BACILIO Administration Protocol Famotidine 20 mg 02/28/21 10:00 03/01/21 09:19 Famotidine 20 Mg/2 Ml Inj IV 20 mg BID BACILIO Administration Furosemide 40 mg 02/28/21 06:00 03/01/21 05:57 Furosemide 40 Mg/4 Ml Inj IV 40 mg BID@0600,1800 BACILIO Administration Glimepiride 2 mg 02/28/21 08:00 03/01/21 09:19 Glimepiride 2 Mg Tab PO 2 mg QDDIAB BACILIO Administration Hydralazine HCl 5 mg 02/27/21 22:37 03/01/21 09:40 Hydralazine 20 Mg/1 Ml Inj IV 5 mg Q4H PRN Administration Hypertension Hydralazine HCl 5 mg 02/28/21 00:48 Hydralazine 20 Mg/1 Ml Inj IV Q4H PRN Hypertension Magnesium Hydroxide 30 ml 02/27/21 22:23 Magnesium Hydroxide (Mom) Oral Liqd Udc PO Q4H PRN Constipation Metoclopramide HCl 10 mg 02/27/21 22:23 Metoclopramide 10 Mg/2 Ml Inj IV Q6H PRN Nausea And Vomiting Nitroglycerin 0.4 mg 02/27/21 22:23 Nitroglycerin 0.4 Mg Tab Subl SL .Q5MIN PRN Chest Pain Ondansetron HCl 4 mg 02/27/21 22:23 Ondansetron 4 Mg/2 Ml Inj IV Q8H PRN Nausea And Vomiting Potassium Chloride 40 meq 02/28/21 10:00 03/01/21 09:22 Potassium Chloride Er 20 Meq Tab PO 40 meq QDAY BACILIO Administration Senna 8.6 mg 02/28/21 10:00 03/01/21 09:19 Sennosides 8.6 Mg Tab PO 8.6 mg Q12HR BACILIO Administration Sodium Chloride 10 ml 02/28/21 10:00 03/01/21 09:20 Sodium Chloride 0.9% 10 Ml Flush Syringe IV 10 ml BID BACILIO Administration Sodium Chloride 10 ml 02/27/21 22:23 03/01/21 05:58 Sodium Chloride 0.9% 10 Ml Flush Syringe IV 10 ml PRN PRN Administration LINE FLUSH Tramadol HCl 50 mg 02/27/21 22:35 02/28/21 08:31 Tramadol 50 Mg Tab PO 50 mg Q4H PRN Administration Pain, Moderate (4-6) Trazodone HCl 50 mg 02/27/21 22:35 Trazodone 50 Mg Tab PO QHS PRN Insomnia Nutrition/Malnutrition Assess - Dietary Evaluation Nutrition/Malnutrition Findings: Nutrition Notes Start: 02/28/21 12:26 Freq: Status: Active Protocol: Document 02/28/21 12:26 CW (Rec: 02/28/21 12:31 CW [email or web address]) Nutrition Notes 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 Pt reports being diagnosed with DM x 17 years prior. Pt very knowledgable regarding DM managament and reports monitoring intakes of carbohydrates adn HgbA1c. Pt had no questions regarding DM with diet. Nutrition Intervention Change Diet Order: Continue diet as ordered Teaching Recipient Patient Teaching Methods Discussion Barriers to Learning No Barriers RD phone number provided Yes Patient aware of follow up options Yes Anticipated Discharge Needs: Cardiac Consistent Carbohydrate Diet Revisit per MD consult or patient Sign Off request: Additional Comments S/O for diet education not needed
--- NOTE | 2021-03-01 11:34 | Progress Note ---
Assessment and Plan 75-year-old patient with normalization of LV function based on echocardiogram last year abnormal troponin unclear etiology restart blood pressure medications Lexiscan stress test in a.m. follow-up echocardiogram and BNP. Will hold amlodipine monitor blood pressure - Patient Problems (1) Chest pain Current Visit: Yes Status: Acute Qualifiers: Chest pain type: chest pain on breathing Qualified Code(s): R07.1 - Chest pain on breathing; R07.81 - Pleurodynia (2) Diabetes Current Visit: Yes Status: Chronic Qualifiers: Diabetes mellitus type: type 2 (3) Hypertension Current Visit: Yes Status: Chronic Qualifiers: Hypertension type: essential hypertension Qualified Code(s): I10 - Essential (primary) hypertension (4) SOB (shortness of breath) Current Visit: Yes Status: Chronic (5) Sleep apnea Current Visit: Yes Status: Acute (6) Diastolic heart failure Current Visit: Yes Status: Acute Subjective Date of service: 03/01/21 Principal diagnosis: chest pain Interval history: chest pain better sob with exertion Objective Vital Signs Temp Pulse Resp BP Pulse Ox 03/01/21 09:40 173/76 03/01/21 08:08 98.7 F 83 18 173/76 94 03/01/21 04:06 97.9 F 63 18 138/63 92 03/01/21 00:34 68 18 99 03/01/21 00:00 68 02/28/21 23:47 97.6 F 68 18 127/68 100 02/28/21 22:00 20 02/28/21 20:07 98.6 F 79 18 142/83 93 02/28/21 15:40 98.7 F 74 18 166/87 92 02/28/21 12:00 75 - Physical Examination General: No Apparent Distress HEENT: Positive: PERRL, Mucus Membranes Moist Neck: Positive: neck supple, trachea midline Cardiac: Positive: Reg Rate and Rhythm Lungs: Positive: clear to auscultation Neuro: Positive: Grossly Intact Abdomen: Positive: Soft, Active Bowel Sounds. Negative: Tender, Distended Skin: Positive: Clear Incision: Cardiac Cath Site Musculoskeletal: No Pain, Normal Range of Motion Extremities: Present: normal. Absent: edema - Imaging and Cardiology Pharmacologic stress test: pending Echo: pending - Telemetry EKG Rhythm: Sinus Rhythm (8 beat non sustained vtach)
[2021-03-01] MEDS ORDERED: NON-FORMULARY EACH (Hydralazine Hcl [Hydralazine Hcl] 50 MG Tablet) PO SCH (11:45)
[2021-03-01] MEDS: LISINOPRIL 40 MG TAB PO SCH (12:33)
[2021-03-01] MEDS: hydrALAZINE 25 MG TAB PO SCH ×2 (12:33→22:37)
[2021-03-01] MEDS: carvediloL 25 MG TAB PO SCH ×2 (12:33→22:37)
[2021-03-02 07:36] LABS: Calcium 9.1 mg/dL (8.4-10.2)
[2021-03-02] MEDS ORDERED: SODIUM CHLORIDE 0.9% 1000 ML 1,000 ML IV ONE (08:01)
[2021-03-02] MEDS ORDERED: REGADENOSON 0.4 MG/5 ML INJ IV ONE (08:28)
[2021-03-02] MEDS: GLIMEPIRIDE 2 MG TAB PO SCH (08:29)
--- NOTE | 2021-03-02 11:36 | Progress Note ---
Assessment and Plan Assessment and plan: 75-year-old male with a medical history of diabetes, coronary artery disease, hyperlipidemia, hypertension, ANNIA, bilateral knee replacements, chronic back pain who presents emergency room with complaints of substernal chest pain. Patient states that the chest pain is rating to his right chest. He rates it at 4/10 in severity. Due to his symptoms, he presented to the hospital. He had the ER, his EKG showed no acute changes. His troponin was 0.06. He was admitted to the hospital for evaluation. Cardiology consulted 02/28. Patients repeat troponin was 0.01. Repeat troponin after this was 0.06. Discharge cancelled. Plan for stress test on Thursday 03/01. He denies any chest pain this AM. Cardiology following. Possible stress test tomorrow 03/02: Patient is for stress test today, discussed with cardiology, EF is abnormal, KAYODE noted, lasix adjusted, decrease fluid to 50ml/hr to ensure no pul monary edema. Norvasc held to do blood pressure. I also discussed his concern about his CPAP and restart to respiratory therapist to evaluate. Anticipate discharge in a.m. if renal function improves. #Chest pain possible secondary to GERD await stress test for full determination Troponin slightly positive Cardiology on board Plan for stress test tomorrow N.p.o. 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 No new chest pain or abnormality on EKG. At most likely a type II non-ST elevated AR #Acute kidney injury likely secondary to vasomotor nephropathy Cardiomyopathy with an EF of 20 to 25% Stress test results are pending. #Hypertension Continue blood pressure medication No clear documentation of shortness of breath patient also denies any shortness of breath. #Obstructive sleep apnea #DVT prophylaxis-Lovenox History Interval history: Patient seen and examined sitting up at bedside. Only complains of some discomfort with BiPAP facemask. Denies any chest pain at this time. Hospitalist Physical - Physical exam Narrative exam: VITAL SIGNS: Reviewed. GENERAL: The patient appears normally developed, Vital signs as documented. HEAD: No signs of head trauma. EYES: Pupils are equal. Extraocular motions intact. EARS: Hearing grossly intact. MOUTH: Oropharynx is normal. NECK: No adenopathy, no JVD. CHEST: Chest with clear breath sounds bilaterally. No wheezes, rales, or rhonchi. CARDIAC: Regular rate and rhythm. S1 and S2, without murmurs, gallops, or rubs. VASCULAR: No Edema. Peripheral pulses normal and equal in all extremities. ABDOMEN: Soft, non tender and non distended. No rebound or guarding, and no masses palpated. Bowel Sounds normal. MUSCULOSKELETAL: Good range of motion of all major joints. Extremities without clubbing, cyanosis. Trace edema. NEUROLOGIC EXAM: Alert and oriented x 3 No focal sensory or strength deficits. Speech normal. Follows commands. PSYCHIATRIC: Mood normal. SKIN: detail exam as documented in skin assessment - Constitutional Vitals: Temp Pulse Resp BP Pulse Ox 98.5 F 74 20 128/64 98 03/02/21 07:50 03/02/21 07:50 03/02/21 07:50 03/02/21 07:50 03/02/21 07:50 General appearance: Present: no acute distress, well-nourished HEART Score - HEART Score EKG: Non-specific Age: > 65 Risk factors: > 3 risk factors or hx of atherosclerotic disease Troponin: Troponin T 0.019 ng/mL (0.00-0.029) 03/02/21 06:11 Troponin: 1-3x normal limit Results - Labs CBC & Chem 7: 02/28/21 02:41 03/02/21 06:11 Labs: Laboratory Last Values WBC 9.3 K/mm3 (4.5-11.0) 02/28/21 02:41 RBC 4.44 M/mm3 (3.65-5.03) 02/28/21 02:41 Hgb 13.1 gm/dl (11.8-15.2) 02/28/21 02:41 Hct 39.7 % (35.5-45.6) 02/28/21 02:41 MCV 89 fl (84-94) 02/28/21 02:41 MCH 30 pg (28-32) 02/28/21 02:41 MCHC 33 % (32-34) 02/28/21 02:41 RDW 14.7 % (13.2-15.2) 02/28/21 02:41 Plt Count 119 K/mm3 (140-440) L 02/28/21 02:41 Lymph % (Auto) 17.9 % (13.4-35.0) 02/28/21 02:41 [place] % (Auto) 10.0 % (0.0-7.3) H 02/28/21 02:41 Eos % (Auto) 1.5 % (0.0-4.3) 02/28/21 02:41 Baso % (Auto) 0.4 % (0.0-1.8) 02/28/21 02:41 Lymph # (Auto) 1.7 K/mm3 (1.2-5.4) 02/28/21 02:41 Douglas # (Auto) 0.9 K/mm3 (0.0-0.8) H 02/28/21 02:41 Eos # (Auto) 0.1 K/mm3 (0.0-0.4) 02/28/21 02:41 Baso # (Auto) 0.0 K/mm3 (0.0-0.1) 02/28/21 02:41 Seg Neutrophils % 70.2 % (40.0-70.0) H 02/28/21 02:41 Seg Neutrophils # 6.5 K/mm3 (1.8-7.7) 02/28/21 02:41 Sodium 143 mmol/L (137-145) 03/02/21 06:11 Potassium 4.9 mmol/L (3.6-5.0) D 03/02/21 06:11 Chloride 106.0 mmol/L (98-107) 03/02/21 06:11 Carbon Dioxide 21 mmol/L (22-30) L 03/02/21 06:11 Anion Gap 21 mmol/L 03/02/21 06:11 BUN 26 mg/dL (9-20) H 03/02/21 06:11 Creatinine 1.8 mg/dL (0.8-1.3) H D 03/02/21 06:11 Estimated GFR 45 ml/min 03/02/21 06:11 BUN/Creatinine Ratio 14 % 03/02/21 06:11 Glucose 151 mg/dL (75-100) H 03/02/21 06:11 Hemoglobin A1c 6.9 % (4-6) H 02/28/21 02:41 Calcium 9.1 mg/dL (8.4-10.2) 03/02/21 06:11 Total Bilirubin 0.30 mg/dL (0.1-1.2) 02/27/21 15:03 AST 14 units/L (5-40) 02/27/21 15:03 ALT 15 units/L (7-56) 02/27/21 15:03 Alkaline Phosphatase 87 units/L (35-129) 02/27/21 15:03 Troponin T 0.019 ng/mL (0.00-0.029) 03/02/21 06:11 NT-Pro-B Natriuret Pep 586.0 pg/mL (0-900) 02/27/21 15:03 Total Protein 7.0 g/dL (6.3-8.2) 02/27/21 15:03 Albumin 3.7 g/dL (3.9-5) L 02/27/21 15:03 Albumin/Globulin Ratio 1.1 % 02/27/21 15:03 Triglycerides 97 mg/dL (2-149) 02/27/21 15:03 Cholesterol 113 mg/dL (50-199) 02/27/21 15:03 LDL Cholesterol Direct 55 mg/dL (50-130) 02/27/21 15:03 HDL Cholesterol 47 mg/dL (40-59) 02/27/21 15:03 Cholesterol/HDL Ratio 2.40 % 02/27/21 15:03 Urine Color Straw (Yellow) 02/28/21 Unknown Urine Turbidity Clear (Clear) 02/28/21 Unknown Urine pH 5.0 (5.0-7.0) 02/28/21 Unknown Ur Specific [place] 1.006 (1.003-1.030) 02/28/21 Unknown Urine Protein <15 mg/dl mg/dL (Negative) 02/28/21 Unknown Urine Glucose (UA) Neg mg/dL (Negative) 02/28/21 Unknown Urine Ketones Neg mg/dL (Negative) 02/28/21 Unknown Urine Blood Neg (Negative) 02/28/21 Unknown Urine Nitrite Neg (Negative) 02/28/21 Unknown Urine Bilirubin Neg (Negative) 02/28/21 Unknown Urine Urobilinogen < 2.0 mg/dL (<2.0) 02/28/21 Unknown Ur Leukocyte Esterase Neg (Negative) 02/28/21 Unknown Urine WBC (Auto) 1.0 /HPF (0.0-6.0) 02/28/21 Unknown Urine RBC (Auto) < 1.0 /HPF (0.0-6.0) 02/28/21 Unknown Urine Bacteria (Auto) 1+ /HPF (Negative) 02/28/21 Unknown Calcium Oxalate Crystal 1+ 02/28/21 Unknown Urine Mucus Few /HPF 02/28/21 Unknown Gregory/IV: Voiding Method Toilet Active Medications - Current Medications Current Medications: Generic Name Dose Route Start Last Admin Trade Name Freq PRN Reason Stop Dose Admin Acetaminophen 650 mg 02/27/21 22:23 03/01/21 22:38 Acetaminophen 325 Mg Tab PO 650 mg Q4H PRN Administration Pain MILD(1-3)/Fever >100.5/WYLIE Al Hydrox/Mg Hydrox/Simethicone 30 ml 02/27/21 22:23 Alum-Mag Hydroxide-Simethicone [phone]/5ml Oral Liqd 30 Ml PO Q4H PRN Indigestion Aspirin 81 mg 02/28/21 10:00 03/01/21 09:19 Aspirin Ec 81 Mg Tab PO 81 mg QDAY BACILIO Administration Atorvastatin Calcium 40 mg 02/28/21 22:00 03/01/21 22:37 Atorvastatin 40 Mg Tab PO 40 mg QHS BACILIO Administration Carvedilol 25 mg 03/01/21 12:00 03/01/21 22:37 Carvedilol 25 Mg Tab PO 25 mg BID BACILIO Administration Cholecalciferol 1,000 unit 02/28/21 10:00 03/01/21 09:19 Cholecalciferol (Vit D3) 1000 Unit (25 Mcg) Tab PO 1,000 unit QDAY BACILIO Administration Enoxaparin Sodium 40 mg 02/28/21 10:00 03/01/21 09:20 Enoxaparin 40 Mg/0.4 Ml Inj SUB-Q 40 mg QDAY BACILIO Administration Protocol Famotidine 20 mg 02/28/21 10:00 03/01/21 22:38 Famotidine 20 Mg/2 Ml Inj IV 20 mg BID BACILIO Administration Furosemide 40 mg 03/02/21 10:00 Furosemide 40 Mg Tab PO QDAY BACILIO Glimepiride 2 mg 02/28/21 08:00 03/01/21 09:19 Glimepiride 2 Mg Tab PO 2 mg QDDIAB BACILIO Administration Hydralazine HCl 5 mg 02/28/21 00:48 Hydralazine 20 Mg/1 Ml Inj IV Q4H PRN Hypertension Hydralazine HCl 50 mg 03/01/21 12:00 03/01/21 22:37 Hydralazine 25 Mg Tab PO 50 mg BID BACILIO Administration Sodium Chloride 1,000 mls @ 100 mls/hr 03/02/21 08:01 Nacl 0.9% 1000 Ml IV 03/02/21 18:00 ONCE ONE Lisinopril 40 mg 03/01/21 12:00 03/01/21 12:33 Lisinopril 40 Mg Tab PO 40 mg QDAY BACILIO Administration Magnesium Hydroxide 30 ml 02/27/21 22:23 Magnesium Hydroxide (Mom) Oral Liqd Udc PO Q4H PRN Constipation Metoclopramide HCl 10 mg 02/27/21 22:23 Metoclopramide 10 Mg/2 Ml Inj IV Q6H PRN Nausea And Vomiting Nitroglycerin 0.4 mg 02/27/21 22:23 Nitroglycerin 0.4 Mg Tab Subl SL .Q5MIN PRN Chest Pain Ondansetron HCl 4 mg 02/27/21 22:23 Ondansetron 4 Mg/2 Ml Inj IV Q8H PRN Nausea And Vomiting Senna 8.6 mg 02/28/21 10:00 03/01/21 22:37 Sennosides 8.6 Mg Tab PO 8.6 mg Q12HR BACILIO Administration Sodium Chloride 10 ml 02/28/21 10:00 03/02/21 04:27 Sodium Chloride 0.9% 10 Ml Flush Syringe IV 10 ml BID BACILIO Administration Sodium Chloride 10 ml 02/27/21 22:23 03/01/21 05:58 Sodium Chloride 0.9% 10 Ml Flush Syringe IV 10 ml PRN PRN Administration LINE FLUSH Tramadol HCl 50 mg 02/27/21 22:35 02/28/21 08:31 Tramadol 50 Mg Tab PO 50 mg Q4H PRN Administration Pain, Moderate (4-6) Trazodone HCl 50 mg 02/27/21 22:35 03/01/21 22:37 Trazodone 50 Mg Tab PO 50 mg QHS PRN Administration Insomnia Nutrition/Malnutrition Assess - Dietary Evaluation Nutrition/Malnutrition Findings: Nutrition Notes Start: 02/28/21 12:26 Freq: Status: Active Protocol: Document 02/28/21 12:26 CW (Rec: 02/28/21 12:31 CW [id number]) Nutrition Notes 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 Pt reports being diagnosed with DM x 17 years prior. Pt very knowledgable regarding DM managament and reports monitoring intakes of carbohydrates adn HgbA1c. Pt had no questions regarding DM with diet. Nutrition Intervention Change Diet Order: Continue diet as ordered Teaching Recipient Patient Teaching Methods Discussion Barriers to Learning No Barriers RD phone number provided Yes Patient aware of follow up options Yes Anticipated Discharge Needs: Cardiac Consistent Carbohydrate Diet Revisit per MD consult or patient Sign Off request: Additional Comments S/O for diet education not needed
[2021-03-02] MEDS: ASPIRIN EC 81 MG TAB PO SCH (12:27)
[2021-03-02] MEDS: SENNOSIDES 8.6 MG TAB PO SCH ×2 (12:27→22:56)
[2021-03-02] MEDS: FUROSEMIDE 40 MG TAB PO SCH (12:28)
[2021-03-02] MEDS: CHOLECALCIFEROL (VIT D3) 1000 UNIT (25 mcg) TAB PO SCH (12:28)
[2021-03-02] MEDS: LISINOPRIL 40 MG TAB PO SCH (12:28)
[2021-03-02] MEDS: hydrALAZINE 25 MG TAB PO SCH ×2 (12:29→22:57)
[2021-03-02] MEDS: carvediloL 25 MG TAB PO SCH ×2 (12:29→22:54)
[2021-03-02] MEDS: ENOXAPARIN 40 MG/0.4 ML INJ SUB-Q SCH (12:30)
[2021-03-02] MEDS: FAMOTIDINE 20 MG TAB PO SCH ×2 (12:31→22:56)
[2021-03-02] MEDS: POTASSIUM CHLORIDE ER 20 MEQ TAB PO SCH (12:33)
[2021-03-02] MEDS: FAMOTIDINE 20 MG/2 ML INJ IV SCH (12:33)
--- NOTE | 2021-03-02 12:44 | Progress Note ---
Assessment and Plan Telemetry reviewed: Sinus rhythm rate 68. Single episode of 8 beat V. tach noted overnight 75-year-old patient with normalization of LV function based on echocardiogram last year abnormal troponin unclear etiology restart blood pressure medications Lexiscan stress test in a.m. follow-up echocardiogram and BNP. Will hold amlodipine monitor blood pressure Chest pain Chest pain is currently resolved. Patient underwent Lexiscan MPI stress testing this a.m. Results are pending. Elevated troponins Troponins were elevated over the weekend. Suspect lab error. Repeat troponin is normal. Patient is currently chest pain-free. Cardiomyopathy Echocardiogram reviewed (02/27/2021): LVEF is 20 to 25%. LV SF is moderately to severely decreased. Mild concentric LVH. Moderate to severe global hypokinesis of the left ventricle. Mild diastolic dysfunction is present (impaired relaxation pattern). RV SF is normal. RVSP is 33 mmHg Continue optimal therapy with BD, ACEI, statin, aspirin. Diabetes Management per primary team Hypertension Continue current antihypertensive regimen. Sleep apnea CPAP as ordered Diastolic heart failure Ischemic work-up in progress DVT prophylaxis Lovenox Will follow This patient was seen in conjunction with Dr Vasquez who agrees with this assessment and plan of care - Patient Problems (1) Chest pain Current Visit: Yes Status: Acute Qualifiers: Chest pain type: chest pain on breathing Qualified Code(s): R07.1 - Chest pain on breathing; R07.81 - Pleurodynia (2) Diabetes Current Visit: Yes Status: Chronic Qualifiers: Diabetes mellitus type: type 2 (3) Hypertension Current Visit: Yes Status: Chronic Qualifiers: Hypertension type: essential hypertension Qualified Code(s): I10 - Ess ential (primary) hypertension (4) SOB (shortness of breath) Current Visit: Yes Status: Chronic (5) Sleep apnea Current Visit: Yes Status: Acute (6) Diastolic heart failure Current Visit: Yes Status: Acute Subjective Date of service: 03/02/21 Principal diagnosis: chest pain Interval history: Patient resting comfortably in bed. No chest pain or shortness of breath overnight. Telemetry reviewed: Sinus rhythm 68. One episode of 8 beat V. tach noted overnight Objective Last Vital Signs Temp 98.7 F 03/02/21 12:16 Pulse 82 03/02/21 12:29 Resp 20 03/02/21 12:16 BP 148/71 03/02/21 12:29 Pulse Ox 97 03/02/21 12:16 - Physical Examination General: No Apparent Distress HEENT: Positive: PERRL, Mucus Membranes Moist Neck: Positive: neck supple, trachea midline Cardiac: Positive: Reg Rate and Rhythm, S1/S2 Lungs: Positive: clear to auscultation, Normal Breath Sounds Neuro: Positive: Grossly Intact Abdomen: Positive: Soft, Active Bowel Sounds. Negative: Tender, Distended Skin: Positive: Clear Incision: Cardiac Cath Site Musculoskeletal: No Pain, Normal Range of Motion Extremities: Present: normal. Absent: edema - Labs and Meds Comprehensive Metabolic Panel 03/02/21 Range/Units 06:11 Sodium 143 (137-145) mmol/L Potassium 4.9 D (3.6-5.0) mmol/L Chloride 106.0 (98-107) mmol/L Carbon Dioxide 21 L (22-30) mmol/L BUN 26 H (9-20) mg/dL Creatinine 1.8 H D (0.8-1.3) mg/dL Glucose 151 H (75-100) mg/dL Calcium 9.1 (8.4-10.2) mg/dL - Imaging and Cardiology Echo: report reviewed (Echocardiogram reviewed (02/27/2021): LVEF is 20 to 25%. LV SF is moderately to severely decreased. Mild concentric LVH. Moderate to severe global hypokinesis of the left ventricle. Mild diastolic dysfunction is present (impaired relaxation pattern). RV SF is normal. RVSP is 33 mmHg)
[2021-03-02] MEDS ORDERED: METOPROLOL TARTRATE 25 MG TAB PO SCH (13:00)
[2021-03-03 06:16] LABS: Calcium 8.7 mg/dL (8.4-10.2)
--- NOTE | 2021-03-03 11:03 | Nuclear Medicine Report ---
APPROVED REPORT Exam: Nuclear Stress Test Indication: Chest pain BMI: 0 Stress Test Details Stress Test: Pharmacologic stress testing performed using 0.4 mg of regadenoson per 5 mL given IV over 10 seconds. HR Resting HR: 77 bpmMax Heart Rate (APMHR): 146 bpm Max HR Achieved: 102 bpmTarget HR (85% APMHR): 124 bpm % of APMHR: 69 Recovery HR: 85 bpm HR response to stress: Normal HR response to stress BP Resting BP: 153/81 mmHg Max BP: 156/87 mmHg Recovery BP: 142/62 mmHg BP response to stress: Normal blood pressure response to stress. ECG Resting ECG: Sinus Rhythm Stress ECG: Sinus Rhythm ST Change: Nondiagnostic resting ST abnormalities Recovery ECG: Sinus Rhythm Recovery ST Change: Nondiagnostic resting ST abnormalities Recovery Arrhythmia: VPC Clinical Reason for Termination: Completed protocol Resting EKG showed S.R with occasional PVC's and diffuse non specific ST-T changes.Mild worsening of ST-T changes with vasodilation with frequent PVC's.However,these changes are non diagnostic. NM EXAM: Myocardial Perfusion REST/STRESS Imaging Protocol: Rest Tc-99m/Stress Tc-99m 1 day Resting Data Rest SPECT myocardial perfusion imaging was performed in supine position 45 minutes following the intravenous injection of 10 mCi of Tc-99m Myoview. Time of rest injection: 0900 Pharmacologic Stress Pharmacologic stress test was performed by injecting Regadenoson 0.4 mg IV push followed by the intravenous injection of 28 mCi of Tc-99m Myoview. Time of stress injection: 1119 Gated Stress SPECT was performed 30 minutes after stress injection. The images were gated to evaluate regional wall motion and calculate left ventricular ejection fraction. Study Quality Study: excellent Lung Uptake: Normal Study Data TID = 1.05. Perfusion Wall Motion Calculated EF was found to be low,29% with dilated LV and diffuse hypokinesis,c/w dilated cardiomyopathy. Nuclear Conclusion ECG Findings: non-diagnostic Clinical Findings: positive for ischemia Nuclear Findings: positive for ischemia Exercise Capacity: not assessed Left Ventricular Function: abnormal Risk Study: high Considering abnormalities noted on LV function and perfusion abnormalities,would recommend further evalaution like coronary angiography,correlate clinically.
[2021-03-03] MEDS: SENNOSIDES 8.6 MG TAB PO SCH ×2 (11:23→21:36)
[2021-03-03] MEDS: ENOXAPARIN 40 MG/0.4 ML INJ SUB-Q SCH (11:23)
[2021-03-03] MEDS: ASPIRIN EC 81 MG TAB PO SCH (11:23)
[2021-03-03] MEDS: GLIMEPIRIDE 2 MG TAB PO SCH (11:24)
[2021-03-03] MEDS: FUROSEMIDE 40 MG TAB PO SCH (11:24)
[2021-03-03] MEDS: CHOLECALCIFEROL (VIT D3) 1000 UNIT (25 mcg) TAB PO SCH (11:25)
[2021-03-03] MEDS: carvediloL 25 MG TAB PO SCH ×2 (11:25→21:35)
[2021-03-03] MEDS: hydrALAZINE 25 MG TAB PO SCH ×2 (11:27→21:36)
[2021-03-03] MEDS: LISINOPRIL 40 MG TAB PO SCH (11:27)
[2021-03-03] MEDS: FAMOTIDINE 20 MG TAB PO SCH ×2 (11:27→21:37)
--- NOTE | 2021-03-03 11:41 | Progress Note ---
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 #Diabetes mellitus Continue insulin regimen #Elevated troponin likely erroneous lab. No new chest pain or abnormality on EKG. NSTEMI ruled out #Acute kidney injury likely secondary to vasomotor nephropathy -Not POA Repeat BMP in AM #Cardiomyopathy with an EF of 20 to 25% Stress test results are pending. #Hypertension Continue blood pressure medication No clear documentation of shortness of breath patient also denies any shortness of breath. #Obstructive sleep apnea #DVT prophylaxis-Lovenox History Interval history: 75-year-old male with a medical history of diabetes, coronary artery disease, hyperlipidemia, hypertension, ANNIA, bilateral knee replacements, chronic back pain who presents emergency room with complaints of substernal chest pain. Patient states that the chest pain is rating to his right chest. He rates it at 4/10 in severity. Due to his symptoms, he presented to the hospital. He had the ER, his EKG showed no acute changes. His troponin was 0.06. He was admitted to the hospital for evaluation. Cardiology consulted 02/28. Patients repeat troponin was 0.01. Repeat troponin after this was 0.06. Discharge cancelled. Plan for stress test on Thursday 03/01. He denies any chest pain this AM. Cardiology following. Possible stress test tomorrow 03/02: Patient is for stress test today, discussed with cardiology, EF is abnormal, KAYODE noted, lasix adjusted, decrease fluid to 50ml/hr to ensure no pulmonary edema. Norvasc held to do blood pressure. I also discussed his concern about his CPAP and restart to respiratory therapist to evaluate. Anticipate discharge in a.m. if renal function improves. 03/03. Cr 1.8. He has no complaints today. Repeat BMP tomorrow. Stress test result pending. Hospitalist Physical - Physical exam Narrative exam: VITAL SIGNS: Reviewed. GENERAL: Awake HEAD: No signs of head trauma. EYES: Pupils are equal. Extraocular motions intact. MOUTH: Oropharynx is normal. NECK: No adenopathy, no JVD. CHEST: Chest with diminished breath sounds bilaterally. No wheezes, rales, or rhonchi. CARDIAC: normal S1 and S2, without murmurs, gallops, or rubs. ABDOMEN: Soft, non tender and non distended. No rebound or guarding, and no masses palpated. Bowel Sounds normal. MUSCULOSKELETAL: No edema NEUROLOGIC EXAM: Alert and oriented x3. No focal neurologic deficits SKIN: No obvious lesions - Constitutional Vitals: Temp Pulse Resp BP Pulse Ox 98.6 F 88 18 136/78 98 03/03/21 07:21 03/03/21 11:27 03/03/21 07:21 03/03/21 07:21 03/03/21 07:21 HEART Score - HEART Score EKG: Non-specific Age: > 65 Risk factors: > 3 risk factors or hx of atherosclerotic disease Troponin: Troponin T 0.019 ng/mL (0.00-0.029) 03/02/21 06:11 Troponin: 1-3x normal limit Results - Labs CBC & Chem 7: 02/28/21 02:41 03/03/21 04:47 Labs: Laboratory Last Values WBC 9.3 K/mm3 (4.5-11.0) 02/28/21 02:41 RBC 4.44 M/mm3 (3.65-5.03) 02/28/21 02:41 Hgb 13.1 gm/dl (11.8-15.2) 02/28/21 02:41 Hct 39.7 % (35.5-45.6) 02/28/21 02:41 MCV 89 fl (84-94) 02/28/21 02:41 MCH 30 pg (28-32) 02/28/21 02:41 MCHC 33 % (32-34) 02/28/21 02:41 RDW 14.7 % (13.2-15.2) 02/28/21 02:41 Plt Count 119 K/mm3 (140-440) L 02/28/21 02:41 Lymph % (Auto) 17.9 % (13.4-35.0) 02/28/21 02:41 [place] % (Auto) 10.0 % (0.0-7.3) H 02/28/21 02:41 Eos % (Auto) 1.5 % (0.0-4.3) 02/28/21 02:41 Baso % (Auto) 0.4 % (0.0-1.8) 02/28/21 02:41 Lymph # (Auto) 1.7 K/mm3 (1.2-5.4) 02/28/21 02:41 [place] # (Auto) 0.9 K/mm3 (0.0-0.8) H 02/28/21 02:41 Eos # (Auto) 0.1 K/mm3 (0.0-0.4) 02/28/21 02:41 Baso # (Auto) 0.0 K/mm3 (0.0-0.1) 02/28/21 02:41 Seg Neutrophils % 70.2 % (40.0-70.0) H 02/28/21 02:41 Seg Neutrophils # 6.5 K/mm3 (1.8-7.7) 02/28/21 02:41 Sodium 141 mmol/L (137-145) 03/03/21 04:47 Potassium 4.1 mmol/L (3.6-5.0) 03/03/21 04:47 Chloride 108.4 mmol/L (98-107) H 03/03/21 04:47 Carbon Dioxide 21 mmol/L (22-30) L 03/03/21 04:47 Anion Gap 16 mmol/L 03/03/21 04:47 BUN 28 mg/dL (9-20) H 03/03/21 04:47 Creatinine 1.8 mg/dL (0.8-1.3) H 03/03/21 04:47 Estimated GFR 45 ml/min 03/03/21 04:47 BUN/Creatinine Ratio 16 % 03/03/21 04:47 Glucose 138 mg/dL (75-100) H 03/03/21 04:47 POC Glucose 132 mg/dL (70-105) H 03/03/21 07:19 Hemoglobin A1c 6.9 % (4-6) H 02/28/21 02:41 Calcium 8.7 mg/dL (8.4-10.2) 03/03/21 04:47 Total Bilirubin 0.30 mg/dL (0.1-1.2) 02/27/21 15:03 AST 14 units/L (5-40) 02/27/21 15:03 ALT 15 units/L (7-56) 02/27/21 15:03 Alkaline Phosphatase 87 units/L (35-129) 02/27/21 15:03 Troponin T 0.019 ng/mL (0.00-0.029) 03/02/21 06:11 NT-Pro-B Natriuret Pep 586.0 pg/mL (0-900) 02/27/21 15:03 Total Protein 7.0 g/dL (6.3-8.2) 02/27/21 15:03 Albumin 3.7 g/dL (3.9-5) L 02/27/21 15:03 Albumin/Globulin Ratio 1.1 % 02/27/21 15:03 Triglycerides 97 mg/dL (2-149) 02/27/21 15:03 Cholesterol 113 mg/dL (50-199) 02/27/21 15:03 LDL Cholesterol Direct 55 mg/dL (50-130) 02/27/21 15:03 HDL Cholesterol 47 mg/dL (40-59) 02/27/21 15:03 Cholesterol/HDL Ratio 2.40 % 02/27/21 15:03 Urine Color Straw (Yellow) 02/28/21 Unknown Urine Turbidity Clear (Clear) 02/28/21 Unknown Urine pH 5.0 (5.0-7.0) 02/28/21 Unknown Ur Specific [place] 1.006 (1.003-1.030) 02/28/21 Unknown Urine Protein <15 mg/dl mg/dL (Negative) 02/28/21 Unknown Urine Glucose (UA) Neg mg/dL (Negative) 02/28/21 Unknown Urine Ketones Neg mg/dL (Negative) 02/28/21 Unknown Urine Blood Neg (Negative) 02/28/21 Unknown Urine Nitrite Neg (Negative) 02/28/21 Unknown Urine Bilirubin Neg (Negative) 02/28/21 Unknown Urine Urobilinogen < 2.0 mg/dL (<2.0) 02/28/21 Unknown Ur Leukocyte Esterase Neg (Negative) 02/28/21 Unknown Urine WBC (Auto) 1.0 /HPF (0.0-6.0) 02/28/21 Unknown Urine RBC (Auto) < 1.0 /HPF (0.0-6.0) 02/28/21 Unknown Urine Bacteria (Auto) 1+ /HPF (Negative) 02/28/21 Unknown Calcium Oxalate Crystal 1+ 02/28/21 Unknown Urine Mucus Few /HPF 02/28/21 Unknown Gregory/IV: Voiding Method Toilet Active Medications - Current Medications Current Medications: Generic Name Dose Route Start Last Admin Trade Name Freq PRN Reason Stop Dose Admin Acetaminophen 650 mg 02/27/21 22:23 03/01/21 22:38 Acetaminophen 325 Mg Tab PO 650 mg Q4H PRN Administration Pain MILD(1-3)/Fever >100.5/WYLIE Al Hydrox/Mg Hydrox/Simethicone 30 ml 02/27/21 22:23 Alum-Mag Hydroxide-Simethicone [id number] Oral Liqd 30 Ml PO Q4H PRN Indigestion Aspirin 81 mg 02/28/21 10:00 03/03/21 11:23 Aspirin Ec 81 Mg Tab PO 81 mg QDAY BACILIO Administration Atorvastatin Calcium 40 mg 02/28/21 22:00 03/02/21 22:56 Atorvastatin 40 Mg Tab PO 40 mg QHS BACILIO Administration Carvedilol 25 mg 03/01/21 12:00 03/03/21 11:25 Carvedilol 25 Mg Tab PO 25 mg BID BACILIO Administration Cholecalciferol 1,000 unit 02/28/21 10:00 03/03/21 11:25 Cholecalciferol (Vit D3) 1000 Unit (25 Mcg) Tab PO 1,000 unit QDAY BACILIO Administration Enoxaparin Sodium 40 mg 02/28/21 10:00 03/03/21 11:23 Enoxaparin 40 Mg/0.4 Ml Inj SUB-Q 40 mg QDAY BACILIO Administration Protocol Famotidine 20 mg 03/02/21 12:00 03/03/21 11:27 Famotidine 20 Mg Tab PO 20 mg BID BACILIO Administration Furosemide 40 mg 03/02/21 10:00 03/03/21 11:24 Furosemide 40 Mg Tab PO 40 mg QDAY BACILIO Administration Glimepiride 2 mg 02/28/21 08:00 03/03/21 11:24 Glimepiride 2 Mg Tab PO 2 mg QDDIAB BACILIO Administration Hydralazine HCl 5 mg 02/28/21 00:48 Hydralazine 20 Mg/1 Ml Inj IV Q4H PRN Hypertension Hydralazine HCl 50 mg 03/01/21 12:00 03/03/21 11:27 Hydralazine 25 Mg Tab PO 50 mg BID BACILIO Administration Lisinopril 40 mg 03/01/21 12:00 03/03/21 11:27 Lisinopril 40 Mg Tab PO 40 mg QDAY BACILIO Administration Magnesium Hydroxide 30 ml 02/27/21 22:23 Magnesium Hydroxide (Mom) Oral Liqd Udc PO Q4H PRN Constipation Metoclopramide HCl 10 mg 02/27/21 22:23 Metoclopramide 10 Mg/2 Ml Inj IV Q6H PRN Nausea And Vomiting Nitroglycerin 0.4 mg 02/27/21 22:23 Nitroglycerin 0.4 Mg Tab Subl SL .Q5MIN PRN Chest Pain Ondansetron HCl 4 mg 02/27/21 22:23 Ondansetron 4 Mg/2 Ml Inj IV Q8H PRN Nausea And Vomiting Senna 8.6 mg 02/28/21 10:00 03/03/21 11:23 Sennosides 8.6 Mg Tab PO 8.6 mg Q12HR BACILIO Administration Sodium Chloride 10 ml 02/28/21 10:00 03/02/21 22:57 Sodium Chloride 0.9% 10 Ml Flush Syringe IV 10 ml BID BACILIO Administration Sodium Chloride 10 ml 02/27/21 22:23 03/01/21 05:58 Sodium Chloride 0.9% 10 Ml Flush Syringe IV 10 ml PRN PRN Administration LINE FLUSH Tramadol HCl 50 mg 02/27/21 22:35 02/28/21 08:31 Tramadol 50 Mg Tab PO 50 mg Q4H PRN Administration Pain, Moderate (4-6) Trazodone HCl 50 mg 02/27/21 22:35 03/01/21 22:37 Trazodone 50 Mg Tab PO 50 mg QHS PRN Administration Insomnia Nutrition/Malnutrition Assess - Dietary Evaluation Nutrition/Malnutrition Findings: Nutrition Notes Start: 02/28/21 12:26 Freq: Status: Active Protocol: Document 02/28/21 12:26 CW (Rec: 02/28/21 12:31 CW [id number]) Nutrition Notes Need for Assessment generated from: community mental health worker,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 Pt reports being diagnosed with DM x 17 years prior. Pt very knowledgable regarding DM managament and reports monitoring intakes of carbohydrates adn HgbA1c. Pt had no questions regarding DM with diet. Nutrition Intervention Change Diet Order: Continue diet as ordered Teaching Recipient Patient Teaching Methods Discussion Barriers to Learning No Barriers RD phone number provided Yes Patient aware of follow up options Yes Anticipated Discharge Needs: Cardiac Consistent Carbohydrate Diet Revisit per MD consult or patient Sign Off request: Additional Comments S/O for diet education not needed
--- NOTE | 2021-03-03 12:41 | Electrocardiograph Report ---
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
--- NOTE | 2021-03-03 12:41 | Electrocardiograph Report ---
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
[2021-03-03] MEDS ORDERED: SODIUM CHLORIDE 0.9% 500 ML 500 ML IV SCH (13:00)
--- NOTE | 2021-03-03 15:27 | Progress Note ---
Assessment and Plan Telemetry reviewed: Sinus rhythm rate 75. Single episode of 3 beat V. tach noted overnight 75-year-old patient with normalization of LV function based on echocardiogram last year abnormal troponin unclear etiology restart blood pressure medications Lexiscan stress test in a.m. follow-up echocardiogram and BNP. Will hold amlodipine monitor blood pressure Chest pain Chest pain is currently resolved. Troponins were elevated over the weekend. Suspect lab error. Repeat troponin is normal. Patient is currently chest pain-free. Lexiscan stress test reviewed (03/02/2021): Test is positive for reversible ischemia. We will plan for LHC in a.m. Procedure was discussed with the patient including risk and potential benefits. Patient is agreeable to proceed at this time. N.p.o. after midnight Cardiomyopathy Echocardiogram reviewed (02/27/2021): LVEF is 20 to 25%. LV SF is moderately to severely decreased. Mild concentric LVH. Moderate to severe global hypokinesis of the left ventricle. Mild diastolic dysfunction is present (impaired relaxation pattern). RV SF is normal. RVSP is 33 mmHg Continue optimal therapy with BD, ACEI, statin, aspirin. Diabetes Management per primary team Hypertension Continue current antihypertensive regimen. Sleep apnea CPAP as ordered Diastolic heart failure Ischemic work-up in progress DVT prophylaxis Lovenox Will follow This patient was seen in conjunction with Dr Vasquez who agrees with this assessment and plan of care - Patient Problems (1) Chest pain Current Visit: Yes Status: Acute Qualifiers: Chest pain type: chest pain on breathing Qualified Code(s): R07.1 - Chest pain on breathing; R07.81 - Pleurodynia (2) Diabetes Current Visit: Yes Status: Chronic Qualifiers: Diabetes mellitus type: type 2 (3) Hypertension Current Visit: Yes Status: Chronic Qualifiers: Hypertension type: essential hypertension Qualified Code(s): I10 - Essential (primary) hypertension (4) SOB (shortness of breath) Current Visit: Yes Status: Chronic (5) Sleep apnea Current Visit: Yes Status: Acute (6) Diastolic heart failure Current Visit: Yes Status: Acute Subjective Date of service: 03/03/21 Principal diagnosis: chest pain Interval history: Patient resting comfortably in bed. No chest pain or shortness of breath overnight. Telemetry reviewed: Sinus rhythm 75. One episode of 3 beat V. tach noted overnight Objective Last Vital Signs Temp 98 F 03/03/21 11:00 Pulse 88 03/03/21 11:27 Resp 18 03/03/21 11:00 BP 144/80 03/03/21 11:00 Pulse Ox 98 03/03/21 07:21 - Physical Examination General: No Apparent Distress HEENT: Positive: PERRL, Mucus Membranes Moist Neck: Positive: neck supple, trachea midline Cardiac: Positive: Reg Rate and Rhythm, S1/S2 Lungs: Positive: clear to auscultation, Normal Breath Sounds Neuro: Positive: Grossly Intact Abdomen: Positive: Soft, Active Bowel Sounds. Negative: Tender, Distended Skin: Positive: Clear Incision: Cardiac Cath Site Musculoskeletal: No Pain, Normal Range of Motion Extremities: Present: normal. Absent: edema - Labs and Meds Comprehensive Metabolic Panel 03/03/21 Range/Units 04:47 Sodium 141 (137-145) mmol/L Potassium 4.1 (3.6-5.0) mmol/L Chloride 108.4 H (98-107) mmol/L Carbon Dioxide 21 L (22-30) mmol/L BUN 28 H (9-20) mg/dL Creatinine 1.8 H (0.8-1.3) mg/dL Glucose 138 H (75-100) mg/dL Calcium 8.7 (8.4-10.2) mg/dL - Imaging and Cardiology Echo: report reviewed (Echocardiogram reviewed (02/27/2021): LVEF is 20 to 25%. LV SF is moderately to severely decreased. Mild concentric LVH. Moderate to severe global hypokinesis of the left ventricle. Mild diastolic dysfunction is present (impaired relaxation pattern). RV SF is normal. RVSP is 33 mmHg) Cardiac cath: pending - Telemetry EKG Rhythm: Sinus Rhythm - EKG Sinus rhythms and dysrhythmias: sinus rhythm
[2021-03-04 05:37] LABS: Basophils % (Auto) 0.5 % (0.0-1.8); Eosinophils # (Auto) 0.1 K/mm3 (0.0-0.4); Eosinophils % (Auto) 1.5 % (0.0-4.3); Hematocrit 38.4 % (35.5-45.6); Hemoglobin 12.7 gm/dl (11.8-15.2); Lymphocytes # (Auto) 1.6 K/mm3 (1.2-5.4); Lymphocytes % (Auto) 19.1 % (13.4-35.0); Mean Corpuscular HGB Conc 33 % (32-34); Mean Corpuscular Volume 89 fl (84-94); Monocytes # (Auto) 0.7 K/mm3 (0.0-0.8); Monocytes % (Auto) 8.9 % (0.0-7.3); Platelet Count 118 K/mm3 (140-440); Red Blood Count 4.33 M/mm3 (3.65-5.03); Red Cell Distribution Width 14.6 % (13.2-15.2)
[2021-03-04 05:48] LABS: INR 1.18 (0.87-1.13)
[2021-03-04 06:29] LABS: Calcium 8.5 mg/dL (8.4-10.2)
[2021-03-04] MEDS ORDERED: SODIUM CHLORIDE 0.9% 500 ML 500 ML ONE (09:27)
[2021-03-04] MEDS: ASPIRIN EC 81 MG TAB PO SCH (09:38)
--- NOTE | 2021-03-04 09:38 | Progress Note ---
Assessment and Plan * Chest pain * Chest pain is currently resolved. * Cardiac catheterization reviewed (03/04/2021): Normal coronary anatomy angiographically. Moderate left ventricular dysfunction EF 35 to 40% however limited amount of contrast dye was used in setting of underlying kidney dysfunction. * Nonischemic cardiomyopathy * Echocardiogram reviewed (02/27/2021): LVEF is 20 to 25%. LV SF is moderately to severely decreased. Mild concentric LVH. Moderate to severe global hypokinesis of the left ventricle. Mild diastolic dysfunction is present (impaired relaxation pattern). RV SF is normal. RVSP is 33 mmHg * Severe nonischemic cardiomyopathy in setting of observed paroxysmal ventricular arrhythmias places patient at increased risk for sudden cardiac . Will order LifeVest placement and plan to repeat echo in 3 months pending cardiac rehab. LifeVest instructions including risks and potential benefits discussed extensively with patient and with daughter via phone and they are agreeable to proceed at this time. * Continue optimal therapy with BB, ACEI, statin, aspirin. * Diabetes * Management per primary team * Hypertension * Continue current antihypertensive regimen. * Sleep apnea * CPAP as ordered * Diastolic heart failure * Pending life vest placement * DVT prophylaxis * Lovenox LifeVest placement is pending. Anticipate discharge once LifeVest is placed. Will follow This patient was seen in conjunction with Dr Vasquez who agrees with this assessment and plan of care - Patient Problems (1) Chest pain Current Visit: Yes Status: Acute Qualifiers: Chest pain type: chest pain on breathing Qualified Code(s): R07.1 - Chest pain on breathing; R07.81 - Pleurodynia (2) Diabetes Current Visit: Yes Status: Chronic Qualifiers: Diabetes mellitus type: type 2 (3) Hypertension Current Visit: Yes Status: Chronic Qualifiers: Hypertension type: essential hypertension Qualified Code(s): I10 - Essential (primary) hypertension (4) SOB (shortness of breath) Current Visit: Yes Status: Chronic (5) Sleep apnea Current Visit: Yes Status: Acute (6) Diastolic heart failure Current Visit: Yes Status: Acute (7) Nonischemic Cardiomyopathy Current Visit: Yes Status: Acute (8)Normal Coronary Arteries Current Visit: Yes Status: Acute Subjective Date of service: 03/04/21 Principal diagnosis: chest pain Interval history: Patient resting comfortably in bed. No chest pain or shortness of breath overnight. Telemetry reviewed: Sinus rhythm 72. Several episodes of 8 beat V. tach noted o vernight Objective Last Vital Signs Temp 98.0 F 03/04/21 04:02 Pulse 61 03/04/21 04:02 Resp 16 03/04/21 04:02 BP 141/69 03/04/21 04:02 Pulse Ox 100 03/04/21 04:02 - Physical Examination General: No Apparent Distress HEENT: Positive: PERRL, Mucus Membranes Moist Neck: Positive: neck supple, trachea midline Cardiac: Positive: Reg Rate and Rhythm, S1/S2 Lungs: Positive: clear to auscultation, Normal Breath Sounds Neuro: Positive: Grossly Intact Abdomen: Positive: Soft, Active Bowel Sounds. Negative: Tender, Distended Skin: Positive: Clear Incision: Cardiac Cath Site Musculoskeletal: No Pain, Normal Range of Motion Extremities: Present: normal. Absent: edema - Labs and Meds Coagulation 03/04/21 Range/Units 04:45 PT 15.0 H (12.2-14.9) Sec. INR 1.18 H (0.87-1.13) CBC 03/04/21 Range/Units 04:45 WBC 8.3 (4.5-11.0) K/mm3 RBC 4.33 (3.65-5.03) M/mm3 Hgb 12.7 (11.8-15.2) gm/dl Hct 38.4 (35.5-45.6) % Plt Count 118 L (140-440) K/mm3 Lymph # (Auto) 1.6 (1.2-5.4) K/mm3 [place] # (Auto) 0.7 (0.0-0.8) K/mm3 Eos # (Auto) 0.1 (0.0-0.4) K/mm3 Baso # (Auto) 0.0 (0.0-0.1) K/mm3 Comprehensive Metabolic Panel 03/04/21 Range/Units 04:45 Sodium 142 (137-145) mmol/L Potassium 4.0 (3.6-5.0) mmol/L Chloride 107.4 H (98-107) mmol/L Carbon Dioxide 21 L (22-30) mmol/L BUN 28 H (9-20) mg/dL Creatinine 1.6 H (0.8-1.3) mg/dL Glucose 128 H (75-100) mg/dL Calcium 8.5 (8.4-10.2) mg/dL - Imaging and Cardiology EKG: report reviewed, image reviewed Echo: report reviewed (Echocardiogram reviewed (02/27/2021): LVEF is 20 to 25%. LV SF is moderately to severely decreased. Mild concentric LVH. Moderate to severe global hypokinesis of the left ventricle. Mild diastolic dysfunction is present (impaired relaxation pattern). RV SF is normal. RVSP is 33 mmHg) Cardiac cath: report reviewed (Cardiac catheterization reviewed (03/04/2021): Normal coronary anatomy angiographically. Moderate left ventricular dysfunction EF 35 to 40% however limited amount of contrast dye was used in setting of underlying kidney dysfunction.) - Telemetry EKG Rhythm: Sinus Rhythm - EKG Sinus rhythms and dysrhythmias: sinus rhythm
[2021-03-04] MEDS ORDERED: SODIUM CHLORIDE 0.9% 500 ML 500 ML IV SCH (10:00)
[2021-03-04] MEDS: GLIMEPIRIDE 2 MG TAB PO SCH (10:10)
[2021-03-04] MEDS ORDERED: HEPARIN/NS 5000 UNIT/500ML 1,000 ML IR ONE (10:16)
--- NOTE | 2021-03-04 10:33 | Progress Note ---
Assessment and Plan Assessment and plan: #Chest pain possible secondary to GERD await stress test for full determination Troponin slightly positive Cardiology on board Stress test showed reversible ischemia. For [facility] this morning. 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 #Diabetes mellitus Continue insulin regimen #Acute kidney injury likely secondary to vasomotor nephropathy -Not POA Monitor renal function #Cardiomyopathy with an EF of 20 to 25% Stress test +ve Plan for left heart cath by cardiology #Hypertension Continue blood pressure medication #Obstructive sleep apnea Weight loss. PCP to schedule sleep study #DVT prophylaxis-Lovenox History Interval history: 75-year-old male with a medical history of diabetes, coronary artery disease, hyperlipidemia, hypertension, ANNIA, bilateral knee replacements, chronic back pain who presents emergency room with complaints of substernal chest pain. Tammi gonzalez states that the chest pain is rating to his right chest. He rates it at 4/10 in severity. Due to his symptoms, he presented to the hospital. He had the ER, his EKG showed no acute changes. His troponin was 0.06. He was admitted to the hospital for evaluation. Cardiology consulted 02/28. Patients repeat troponin was 0.01. Repeat troponin after this was 0.06. Discharge cancelled. Plan for stress test on Thursday 03/01. He denies any chest pain this AM. Cardiology following. Possible stress test tomorrow 03/02: Patient is for stress test today, discussed with cardiology, EF is abnormal , KAYODE noted, lasix adjusted, decrease fluid to 50ml/hr to ensure no pulmonary edema. Norvasc held to do blood pressure. I also discussed his concern about his CPAP and restart to respiratory therapist to evaluate. Anticipate discharge in a.m. if renal function improves. 03/03. Cr 1.8. He has no complaints today. Repeat BMP tomorrow. Stress test result pending. 03/04. His stress test result is positive. Plan for [facility] this AM. Hospitalist Physical - Physical exam Narrative exam: VITAL SIGNS: Reviewed. GENERAL: Awake HEAD: No signs of head trauma. EYES: Pupils are equal. Extraocular motions intact. MOUTH: Oropharynx is normal. NECK: No adenopathy, no JVD. CHEST: Chest with diminished breath sounds bilaterally. No wheezes, rales, or rhonchi. CARDIAC: normal S1 and S2, without murmurs, gallops, or rubs. ABDOMEN: Soft, non tender and non distended. No rebound or guarding, and no masses palpated. Bowel Sounds normal. MUSCULOSKELETAL: No edema NEUROLOGIC EXAM: Alert and oriented x3. No focal neurologic deficits SKIN: No obvious lesions - Constitutional Vitals: Temp Pulse Resp BP Pulse Ox 98.0 F 61 16 141/69 100 03/04/21 04:02 03/04/21 04:02 03/04/21 04:02 03/04/21 04:02 03/04/21 04:02 HEART Score - HEART Score EKG: Non-specific Age: > 65 Risk factors: > 3 risk factors or hx of atherosclerotic disease Troponin: Troponin T 0.019 ng/mL (0.00-0.029) 03/02/21 06:11 Troponin: 1-3x normal limit Results - Labs CBC & Chem 7: 03/04/21 04:45 03/04/21 04:45 Labs: Laboratory Last Values WBC 8.3 K/mm3 (4.5-11.0) 03/04/21 04:45 RBC 4.33 M/mm3 (3.65-5.03) 03/04/21 04:45 Hgb 12.7 gm/dl (11.8-15.2) 03/04/21 04:45 Hct 38.4 % (35.5-45.6) 03/04/21 04:45 MCV 89 fl (84-94) 03/04/21 04:45 MCH 29 pg (28-32) 03/04/21 04:45 MCHC 33 % (32-34) 03/04/21 04:45 RDW 14.6 % (13.2-15.2) 03/04/21 04:45 Plt Count 118 K/mm3 (140-440) L 03/04/21 04:45 Lymph % (Auto) 19.1 % (13.4-35.0) 03/04/21 04:45 [place] % (Auto) 8.9 % (0.0-7.3) H 03/04/21 04:45 Eos % (Auto) 1.5 % (0.0-4.3) 03/04/21 04:45 Baso % (Auto) 0.5 % (0.0-1.8) 03/04/21 04:45 Lymph # (Auto) 1.6 K/mm3 (1.2-5.4) 03/04/21 04:45 [place] # (Auto) 0.7 K/mm3 (0.0-0.8) 03/04/21 04:45 Eos # (Auto) 0.1 K/mm3 (0.0-0.4) 03/04/21 04:45 Baso # (Auto) 0.0 K/mm3 (0.0-0.1) 03/04/21 04:45 Seg Neutrophils % 70.0 % (40.0-70.0) 03/04/21 04:45 Seg Neutrophils # 5.8 K/mm3 (1.8-7.7) 03/04/21 04:45 PT 15.0 Sec. (12.2-14.9) H 03/04/21 04:45 INR 1.18 (0.87-1.13) H 03/04/21 04:45 Sodium 142 mmol/L (137-145) 03/04/21 04:45 Potassium 4.0 mmol/L (3.6-5.0) 03/04/21 04:45 Chloride 107.4 mmol/L (98-107) H 03/04/21 04:45 Carbon Dioxide 21 mmol/L (22-30) L 03/04/21 04:45 Anion Gap 18 mmol/L 03/04/21 04:45 BUN 28 mg/dL (9-20) H 03/04/21 04:45 Creatinine 1.6 mg/dL (0.8-1.3) H 03/04/21 04:45 Estimated GFR 51 ml/min 03/04/21 04:45 BUN/Creatinine Ratio 18 % 03/04/21 04:45 Glucose 128 mg/dL (75-100) H 03/04/21 04:45 POC Glucose 163 mg/dL (70-105) H 03/03/21 20:23 Hemoglobin A1c 6.9 % (4-6) H 02/28/21 02:41 Calcium 8.5 mg/dL (8.4-10.2) 03/04/21 04:45 Total Bilirubin 0.30 mg/dL (0.1-1.2) 02/27/21 15:03 AST 14 units/L (5-40) 02/27/21 15:03 ALT 15 units/L (7-56) 02/27/21 15:03 Alkaline Phosphatase 87 units/L (35-129) 02/27/21 15:03 Troponin T 0.019 ng/mL (0.00-0.029) 03/02/21 06:11 NT-Pro-B Natriuret Pep 586.0 pg/mL (0-900) 02/27/21 15:03 Total Protein 7.0 g/dL (6.3-8.2) 02/27/21 15:03 Albumin 3.7 g/dL (3.9-5) L 02/27/21 15:03 Albumin/Globulin Ratio 1.1 % 02/27/21 15:03 Triglycerides 97 mg/dL (2-149) 02/27/21 15:03 Cholesterol 113 mg/dL (50-199) 02/27/21 15:03 LDL Cholesterol Direct 55 mg/dL (50-130) 02/27/21 15:03 HDL Cholesterol 47 mg/dL (40-59) 02/27/21 15:03 Cholesterol/HDL Ratio 2.40 % 02/27/21 15:03 Urine Color Straw (Yellow) 02/28/21 Unknown Urine Turbidity Clear (Clear) 02/28/21 Unknown Urine pH 5.0 (5.0-7.0) 02/28/21 Unknown Ur Specific [place] 1.006 (1.003-1.030) 02/28/21 Unknown Urine Protein <15 mg/dl mg/dL (Negative) 02/28/21 Unknown Urine Glucose (UA) Neg mg/dL (Negative) 02/28/21 Unknown Urine Ketones Neg mg/dL (Negative) 02/28/21 Unknown Urine Blood Neg (Negative) 02/28/21 Unknown Urine Nitrite Neg (Negative) 02/28/21 Unknown Urine Bilirubin Neg (Negative) 02/28/21 Unknown Urine Urobilinogen < 2.0 mg/dL (<2.0) 02/28/21 Unknown Ur Leukocyte Esterase Neg (Negative) 02/28/21 Unknown Urine WBC (Auto) 1.0 /HPF (0.0-6.0) 02/28/21 Unknown Urine RBC (Auto) < 1.0 /HPF (0.0-6.0) 02/28/21 Unknown Urine Bacteria (Auto) 1+ /HPF (Negative) 02/28/21 Unknown Calcium Oxalate Crystal 1+ 02/28/21 Unknown Urine Mucus Few /HPF 02/28/21 Unknown Gregory/IV: Voiding Method Toilet Active Medications - Current Medications Current Medications: Generic Name Dose Route Start Last Admin Trade Name Freq PRN Reason Stop Dose Admin Acetaminophen 650 mg 02/27/21 22:23 03/01/21 22:38 Acetaminophen 325 Mg Tab PO 650 mg Q4H PRN Administration Pain MILD(1-3)/Fever >100.5/WYLIE Al Hydrox/Mg Hydrox/Simethicone 30 ml 02/27/21 22:23 Alum-Mag Hydroxide-Simethicone [id number]/5ml Oral Liqd 30 Ml PO Q4H PRN Indigestion Aspirin 81 mg 02/28/21 10:00 03/04/21 09:38 Aspirin Ec 81 Mg Tab PO 81 mg QDAY BACILIO Administration Atorvastatin Calcium 40 mg 02/28/21 22:00 03/03/21 21:37 Atorvastatin 40 Mg Tab PO 40 mg QHS BACILIO Administration Carvedilol 25 mg 03/01/21 12:00 03/03/21 21:35 Carvedilol 25 Mg Tab PO 25 mg BID BACILIO Administration Cholecalciferol 1,000 unit 02/28/21 10:00 03/03/21 11:25 Cholecalciferol (Vit D3) 1000 Unit (25 Mcg) Tab PO 1,000 unit QDAY BACILIO Administration Enoxaparin Sodium 40 mg 02/28/21 10:00 03/03/21 11:23 Enoxaparin 40 Mg/0.4 Ml Inj SUB-Q 40 mg QDAY BACILIO Administration Protocol Famotidine 20 mg 03/02/21 12:00 03/03/21 21:37 Famotidine 20 Mg Tab PO 20 mg BID BACILIO Administration Furosemide 40 mg 03/02/21 10:00 03/03/21 11:24 Furosemide 40 Mg Tab PO 40 mg QDAY BACILIO Administration Glimepiride 2 mg 02/28/21 08:00 03/04/21 10:10 Glimepiride 2 Mg Tab PO Not Given QDDIAB BACILIO Hydralazine HCl 5 mg 02/28/21 00:48 Hydralazine 20 Mg/1 Ml Inj IV Q4H PRN Hypertension Hydralazine HCl 50 mg 03/01/21 12:00 03/03/21 21:36 Hydralazine 25 Mg Tab PO 50 mg BID BACILIO Administration Sodium Chloride 500 mls @ 50 mls/hr 03/04/21 10:00 Nacl 0.9% 500 Ml IV DIRECT BACILIO Lisinopril 40 mg 03/01/21 12:00 03/03/21 11:27 Lisinopril 40 Mg Tab PO 40 mg QDAY BACILIO Administration Magnesium Hydroxide 30 ml 02/27/21 22:23 Magnesium Hydroxide (Mom) Oral Liqd Udc PO Q4H PRN Constipation Metoclopramide HCl 10 mg 02/27/21 22:23 Metoclopramide 10 Mg/2 Ml Inj IV Q6H PRN Nausea And Vomiting Nitroglycerin 0.4 mg 02/27/21 22:23 Nitroglycerin 0.4 Mg Tab Subl SL .Q5MIN PRN Chest Pain Ondansetron HCl 4 mg 02/27/21 22:23 Ondansetron 4 Mg/2 Ml Inj IV Q8H PRN Nausea And Vomiting Senna 8.6 mg 02/28/21 10:00 03/03/21 21:36 Sennosides 8.6 Mg Tab PO 8.6 mg Q12HR BACILIO Administration Sodium Chloride 10 ml 02/28/21 10:00 03/03/21 21:38 Sodium Chloride 0.9% 10 Ml Flush Syringe IV 10 ml BID BACILIO Administration Sodium Chloride 10 ml 02/27/21 22:23 03/01/21 05:58 Sodium Chloride 0.9% 10 Ml Flush Syringe IV 10 ml PRN PRN Administration LINE FLUSH Tramadol HCl 50 mg 02/27/21 22:35 02/28/21 08:31 Tramadol 50 Mg Tab PO 50 mg Q4H PRN Administration Pain, Moderate (4-6) Trazodone HCl 50 mg 02/27/21 22:35 03/01/21 22:37 Trazodone 50 Mg Tab PO 50 mg QHS PRN Administration Insomnia Nutrition/Malnutrition Assess - Dietary Evaluation Nutrition/Malnutrition Findings: Nutrition Notes Start: 02/28/21 12:26 Freq: Status: Active Protocol: Document 02/28/21 12:26 CW (Rec: 02/28/21 12:31 CW [id number]) Nutrition Notes 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 Pt reports being diagnosed with DM x 17 years prior. Pt very knowledgable regarding DM managament and reports monitoring intakes of carbohydrates adn HgbA1c. Pt had no questions regarding DM with diet. Nutrition Intervention Change Diet Order: Continue diet as ordered Teaching Recipient Patient Teaching Methods Discussion Barriers to Learning No Barriers RD phone number provided Yes Patient aware of follow up options Yes Anticipated Discharge Needs: Cardiac Consistent Carbohydrate Diet Revisit per MD consult or patient Sign Off request: Additional Comments S/O for diet education not needed
[2021-03-04] MEDS: MIDAZOLAM 2 MG/2 ML INJ ONE ×2 (11:01→11:11)
[2021-03-04] MEDS: LIDOCAINE (2%) 20 MG/1 ML VIAL 20 ML MDV INFILTRATI ONE ×2 (11:01→11:12)
[2021-03-04] MEDS: fentaNYL 100 MCG/2 ML INJ ONE ×2 (11:01→11:11)
[2021-03-04] MEDS: HEPARIN 10,000 UNITS/10 ML VIAL ONE ×2 (11:02→11:13)
[2021-03-04] MEDS: VERAPAMIL 5 MG/2 ML INJ ONE ×2 (11:02→11:13)
[2021-03-04] MEDS: SENNOSIDES 8.6 MG TAB PO SCH ×2 (12:19→21:36)
[2021-03-04] MEDS: hydrALAZINE 25 MG TAB PO SCH ×2 (12:19→21:38)
[2021-03-04] MEDS: ENOXAPARIN 40 MG/0.4 ML INJ SUB-Q SCH (12:19)
[2021-03-04] MEDS: LISINOPRIL 40 MG TAB PO SCH (12:20)
[2021-03-04] MEDS: CHOLECALCIFEROL (VIT D3) 1000 UNIT (25 mcg) TAB PO SCH (12:20)
[2021-03-04] MEDS: carvediloL 25 MG TAB PO SCH ×2 (12:20→21:37)
[2021-03-04] MEDS: FAMOTIDINE 20 MG TAB PO SCH ×2 (12:20→21:36)
[2021-03-04] MEDS: FUROSEMIDE 40 MG TAB PO SCH (12:21)
--- NOTE | 2021-03-04 12:49 | Cardiac Catherization Report ---
DATE OF SERVICE: 03/04/2021 CARDIAC CATHETERIZATION REPORT INDICATIONS: The patient is a 75-year-old -[place] gentleman who was admitted with chest pain and shortness of breath, which is chronic. The patient has a history of hypertension, diabetes mellitus, echocardiogram showed ejection fraction of 20-25%, and a Lexiscan pharmacological perfusion imaging showed multiple defects, which are reversible. He is scheduled for cardiac catheterization for definitive diagnosis and treatment. The patient did not have any cardiac workup done in the past. DESCRIPTION OF PROCEDURE: The patient was brought to the catheterization laboratory in a fasting condition. The patient was prepared in standard fashion. The patient was evaluated for moderate sedation and was felt to be an appropriate candidate for moderate sedation and received IV Versed and fentanyl. Subsequently, local anesthesia was given in the right wrist area and right radial artery puncture was made using 21-gauge arterial puncture needle. Subsequently, a 5-Gabonese slender sheath was introduced. A 6-Gabonese multipurpose catheter was used to obtain the angiograms of the left ventricle done in LIMON and DIRK projection using hand injection, followed by angiograms of the right coronary artery and left coronary artery angiograms in multiple views. At the end of the procedure, catheter and sheath were removed and a radial band was applied for good hemostasis. The patient tolerated the moderate sedation well. The patient was monitored throughout the procedure with pulse oximetry, EKG monitoring and hemodynamic monitoring. At the end of the procedure, the patient is able to communicate normally, moving all the extremities without any focal deficits and breathing normally. The patient's moderate sedation started at 11:11 a.m. and at 11:22 a.m. The patient was transferred to the room in stable condition. Following findings were noted: Aortic pressure 158/78. Left ventricular pressure is 153/30. No gradient across the aortic valve. Estimated ejection fraction 35-40%. Left ventriculogram was performed in LIMON and DIRK projections; however, only limited amount of dye was injected. The patient has underlying kidney dysfunction. Hence, only limited amount of dye was injected. Ejection fraction was felt to be 35-40%; however, would confirm with a repeat echocardiogram at a later date. His right coronary artery arises normally from right coronary cusp. This is a dominant vessel, large and angiographically smooth and normal. Left coronary artery arises normally from left coronary cusp. Left main, LAD, which goes around the apex and its branches and a circumflex artery and its branches are angiographically smooth and normal. FINAL IMPRESSION: 1. Moderate left ventricular dysfunction, ejection fraction 35-40%; however, this is only limited amount of dye injected with an elevated end diastolic pressure of 30 mmHg. 2. Normal coronary anatomy angiographically. 3. Radial artery was used for access and good hemostasis was achieved with radial band application. No hematoma noted. The patient tolerated the procedure well. Findings were explained to the patient and also to his daughter on the phone, they understand. PLAN: At this time is to continue present medical therapy and monitor his BMP in the morning and if it is unremarkable, we can discharge him and be followed as an outpatient with medical therapy, he understands. TID: [id number] RECEIPT: [id number] ILIR/RANI
[2021-03-05 08:16] LABS: Hematocrit 41.2 % (35.5-45.6); Hemoglobin 13.6 gm/dl (11.8-15.2); Mean Corpuscular HGB Conc 33 % (32-34); Mean Corpuscular Volume 89 fl (84-94); Red Blood Count 4.65 M/mm3 (3.65-5.03); Red Cell Distribution Width 14.2 % (13.2-15.2)
[2021-03-05 08:17] LABS: Platelet Count 136 K/mm3 (140-440)
[2021-03-05 08:42] LABS: Calcium 8.9 mg/dL (8.4-10.2)
[2021-03-05] MEDS: FAMOTIDINE 20 MG TAB PO SCH ×2 (09:08→21:25)
[2021-03-05] MEDS: CHOLECALCIFEROL (VIT D3) 1000 UNIT (25 mcg) TAB PO SCH (09:08)
[2021-03-05] MEDS: ENOXAPARIN 40 MG/0.4 ML INJ SUB-Q SCH (09:08)
[2021-03-05] MEDS: LISINOPRIL 40 MG TAB PO SCH (09:08)
[2021-03-05] MEDS: FUROSEMIDE 40 MG TAB PO SCH (09:08)
[2021-03-05] MEDS: carvediloL 25 MG TAB PO SCH ×2 (09:08→21:25)
[2021-03-05] MEDS: ASPIRIN EC 81 MG TAB PO SCH (09:08)
[2021-03-05] MEDS: SENNOSIDES 8.6 MG TAB PO SCH ×2 (09:10→21:25)
[2021-03-05] MEDS: GLIMEPIRIDE 2 MG TAB PO SCH (09:18)
--- NOTE | 2021-03-05 11:10 | Progress Note ---
Assessment and Plan Assessment and plan: #Chest pain Troponin slightly positive Cardiology on board Stress test showed reversible ischemia. LHC shows no significant occlusive disease.Per cath report, he has moderately reduced EF ~ 35 -40%. Needs a lifevest per cardiology. 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 #Diabetes mellitus Continue insulin regimen #Acute kidney injury likely secondary to vasomotor nephropathy -Not POA Monitor renal function AM labs pending #Cardiomyopathy with an EF of 20 to 25% Echo shows low EF 20-25% Plan for lifevest per cardiology #Hypertension Continue blood pressure medication #Obstructive sleep apnea Weight loss. PCP to schedule sleep study #DVT prophylaxis-Lovenox History Interval history: 75-year-old male with a medical history of diabetes, coronary artery disease, hyperlipidemia, hypertension, ANNIA, bilateral knee replacements, chronic back pain who presents emergency room with complaints of substernal chest pain. Patient states that the chest pain is rating to his right chest. He rates it at 4/10 in severity. Due to his symptoms, he presented to the hospital. He had the ER, his EKG showed no acute changes. His troponin was 0.06. He was admitted to the hospital for evaluation. Cardiology consulted 02/28. Patients repeat troponin was 0.01. Repeat troponin after this was 0.06. Discharge cancelled. Plan for stress test on Thursday 03/01. He denies any chest pain this AM. Cardiology following. Possible stress test tomorrow 03/02: Patient is for stress test today, discussed with cardiology, EF is abnormal, KAYODE noted, lasix adjusted, decrease fluid to 50ml/hr to ensure no pulmonary edema. Norvasc held to do blood pressure. I also discussed his concern about his CPAP and restart to respiratory therapist to evaluate. Anticipate discharge in a.m. if renal function improves. 03/03. Cr 1.8. He has no complaints today. Repeat BMP tomorrow. Stress test result pending. 03/04. His stress test result is positive. Plan for LHC this AM. 03/05. LHC shows no significant occlusive disease. Per cath result, his EF is 35 - 40%. He needs a lifevest. He denies any chest pain. Hospitalist Physical - Physical exam Narrative exam: VITAL SIGNS: Reviewed. GENERAL: Awake HEAD: No signs of head trauma. EYES: Pupils are equal. Extraocular motions intact. MOUTH: Oropharynx is normal. NECK: No adenopathy, no JVD. CHEST: Chest with diminished breath sounds bilaterally. No wheezes, rales, or rhonchi. CARDIAC: normal S1 and S2, without murmurs, gallops, or rubs. ABDOMEN: Soft, non tender and non distended. No rebound or guarding, and no masses palpated. Bowel Sounds normal. MUSCULOSKELETAL: No edema NEUROLOGIC EXAM: Alert and oriented x3. No focal neurologic deficits SKIN: No obvious lesions - Constitutional Vitals: Temp Pulse Resp BP Pulse Ox 98.5 F 68 20 108/58 93 03/05/21 07:25 03/05/21 09:08 03/05/21 07:25 03/05/21 09:08 03/05/21 07:25 HEART Score - HEART Score EKG: Non-specific Age: > 65 Risk factors: > 3 risk factors or hx of atherosclerotic disease Troponin: Troponin T 0.019 ng/mL (0.00-0.029) 03/02/21 06:11 Troponin: 1-3x normal limit Results - Labs CBC & Chem 7: 03/05/21 06:55 03/05/21 06:55 Labs: Laboratory Last Values WBC 8.9 K/mm3 (4.5-11.0) 03/05/21 06:55 RBC 4.65 M/mm3 (3.65-5.03) 03/05/21 06:55 Hgb 13.6 gm/dl (11.8-15.2) 03/05/21 06:55 Hct 41.2 % (35.5-45.6) 03/05/21 06:55 MCV 89 fl (84-94) 03/05/21 06:55 MCH 29 pg (28-32) 03/05/21 06:55 MCHC 33 % (32-34) 03/05/21 06:55 RDW 14.2 % (13.2-15.2) 03/05/21 06:55 Plt Count 136 K/mm3 (140-440) L 03/05/21 06:55 Lymph % (Auto) 19.1 % (13.4-35.0) 03/04/21 04:45 [place] % (Auto) 8.9 % (0.0-7.3) H 03/04/21 04:45 Eos % (Auto) 1.5 % (0.0-4.3) 03/04/21 04:45 Baso % (Auto) 0.5 % (0.0-1.8) 03/04/21 04:45 Lymph # (Auto) 1.6 K/mm3 (1.2-5.4) 03/04/21 04:45 [place] # (Auto) 0.7 K/mm3 (0.0-0.8) 03/04/21 04:45 Eos # (Auto) 0.1 K/mm3 (0.0-0.4) 03/04/21 04:45 Baso # (Auto) 0.0 K/mm3 (0.0-0.1) 03/04/21 04:45 Seg Neutrophils % 70.0 % (40.0-70.0) 03/04/21 04:45 Seg Neutrophils # 5.8 K/mm3 (1.8-7.7) 03/04/21 04:45 PT 15.0 Sec. (12.2-14.9) H 03/04/21 04:45 INR 1.18 (0.87-1.13) H 03/04/21 04:45 Sodium 139 mmol/L (137-145) 03/05/21 06:55 Potassium 4.4 mmol/L (3.6-5.0) 03/05/21 06:55 Chloride 102.3 mmol/L (98-107) 03/05/21 06:55 Carbon Dioxide 24 mmol/L (22-30) 03/05/21 06:55 Anion Gap 17 mmol/L 03/05/21 06:55 BUN 27 mg/dL (9-20) H 03/05/21 06:55 Creatinine 1.7 mg/dL (0.8-1.3) H 03/05/21 06:55 Estimated GFR 48 ml/min 03/05/21 06:55 BUN/Creatinine Ratio 16 % 03/05/21 06:55 Glucose 141 mg/dL (75-100) H 03/05/21 06:55 POC Glucose 127 mg/dL (70-105) H 03/04/21 20:35 Hemoglobin A1c 6.9 % (4-6) H 02/28/21 02:41 Calcium 8.9 mg/dL (8.4-10.2) 03/05/21 06:55 Total Bilirubin 0.30 mg/dL (0.1-1.2) 02/27/21 15:03 AST 14 units/L (5-40) 02/27/21 15:03 ALT 15 units/L (7-56) 02/27/21 15:03 Alkaline Phosphatase 87 units/L (35-129) 02/27/21 15:03 Troponin T 0.019 ng/mL (0.00-0.029) 03/02/21 06:11 NT-Pro-B Natriuret Pep 586.0 pg/mL (0-900) 02/27/21 15:03 Total Protein 7.0 g/dL (6.3-8.2) 02/27/21 15:03 Albumin 3.7 g/dL (3.9-5) L 02/27/21 15:03 Albumin/Globulin Ratio 1.1 % 02/27/21 15:03 Triglycerides 97 mg/dL (2-149) 02/27/21 15:03 Cholesterol 113 mg/dL (50-199) 02/27/21 15:03 LDL Cholesterol Direct 55 mg/dL (50-130) 02/27/21 15:03 HDL Cholesterol 47 mg/dL (40-59) 02/27/21 15:03 Cholesterol/HDL Ratio 2.40 % 02/27/21 15:03 Urine Color Straw (Yellow) 02/28/21 Unknown Urine Turbidity Clear (Clear) 02/28/21 Unknown Urine pH 5.0 (5.0-7.0) 02/28/21 Unknown Ur Specific [place] 1.006 (1.003-1.030) 02/28/21 Unknown Urine Protein <15 mg/dl mg/dL (Negative) 02/28/21 Unknown Urine Glucose (UA) Neg mg/dL (Negative) 02/28/21 Unknown Urine Ketones Neg mg/dL (Negative) 02/28/21 Unknown Urine Blood Neg (Negative) 02/28/21 Unknown Urine Nitrite Neg (Negative) 02/28/21 Unknown Urine Bilirubin Neg (Negative) 02/28/21 Unknown Urine Urobilinogen < 2.0 mg/dL (<2.0) 02/28/21 Unknown Ur Leukocyte Esterase Neg (Negative) 02/28/21 Unknown Urine WBC (Auto) 1.0 /HPF (0.0-6.0) 02/28/21 Unknown Urine RBC (Auto) < 1.0 /HPF (0.0-6.0) 02/28/21 Unknown Urine Bacteria (Auto) 1+ /HPF (Negative) 02/28/21 Unknown Calcium Oxalate Crystal 1+ 02/28/21 Unknown Urine Mucus Few /HPF 02/28/21 Unknown Gregory/IV: Voiding Method Toilet Active Medications - Current Medications Current Medications: Generic Name Dose Route Start Last Admin Trade Name Freq PRN Reason Stop Dose Admin Acetaminophen 650 mg 02/27/21 22:23 03/01/21 22:38 Acetaminophen 325 Mg Tab PO 650 mg Q4H PRN Administration Pain MILD(1-3)/Fever >100.5/WYLIE Al Hydrox/Mg Hydrox/Simethicone 30 ml 02/27/21 22:23 Alum-Mag Hydroxide-Simethicone 165-381-47mr/5ml Oral Liqd 30 Ml PO Q4H PRN Indigestion Aspirin 81 mg 02/28/21 10:00 03/05/21 09:08 Aspirin Ec 81 Mg Tab PO 81 mg QDAY BACILIO Administration Atorvastatin Calcium 40 mg 02/28/21 22:00 03/04/21 21:37 Atorvastatin 40 Mg Tab PO 40 mg QHS BACILIO Administration Carvedilol 25 mg 03/01/21 12:00 03/05/21 09:08 Carvedilol 25 Mg Tab PO 25 mg BID BACILIO Administration Cholecalciferol 1,000 unit 02/28/21 10:00 03/05/21 09:08 Cholecalciferol (Vit D3) 1000 Unit (25 Mcg) Tab PO 1,000 unit QDAY BACILIO Administration Enoxaparin Sodium 40 mg 02/28/21 10:00 03/05/21 09:08 Enoxaparin 40 Mg/0.4 Ml Inj SUB-Q 40 mg QDAY BACILIO Administration Protocol Famotidine 20 mg 03/02/21 12:00 03/05/21 09:08 Famotidine 20 Mg Tab PO 20 mg BID BACILIO Administration Furosemide 40 mg 03/02/21 10:00 03/05/21 09:08 Furosemide 40 Mg Tab PO 40 mg QDAY BACILIO Administration Glimepiride 2 mg 02/28/21 08:00 03/05/21 09:18 Glimepiride 2 Mg Tab PO 2 mg QDDIAB BACILIO Administration Hydralazine HCl 5 mg 02/28/21 00:48 Hydralazine 20 Mg/1 Ml Inj IV Q4H PRN Hypertension Hydralazine HCl 50 mg 03/01/21 12:00 03/04/21 21:38 Hydralazine 25 Mg Tab PO 50 mg BID BACILIO Administration Sodium Chloride 500 mls @ 50 mls/hr 03/04/21 10:00 Nacl 0.9% 500 Ml IV DIRECT BACILIO Lisinopril 40 mg 03/01/21 12:00 03/05/21 09:08 Lisinopril 40 Mg Tab PO 40 mg QDAY BACILIO Administration Magnesium Hydroxide 30 ml 02/27/21 22:23 Magnesium Hydroxide (Mom) Oral Liqd Udc PO Q4H PRN Constipation Metoclopramide HCl 10 mg 02/27/21 22:23 Metoclopramide 10 Mg/2 Ml Inj IV Q6H PRN Nausea And Vomiting Nitroglycerin 0.4 mg 02/27/21 22:23 Nitroglycerin 0.4 Mg Tab Subl SL .Q5MIN PRN Chest Pain Ondansetron HCl 4 mg 02/27/21 22:23 Ondansetron 4 Mg/2 Ml Inj IV Q8H PRN Nausea And Vomiting Senna 8.6 mg 02/28/21 10:00 03/05/21 09:10 Sennosides 8.6 Mg Tab PO 8.6 mg Q12HR BACILIO Administration Sodium Chloride 10 ml 02/28/21 10:00 03/05/21 09:09 Sodium Chloride 0.9% 10 Ml Flush Syringe IV 10 ml BID BACILIO Administration Sodium Chloride 10 ml 02/27/21 22:23 03/01/21 05:58 Sodium Chloride 0.9% 10 Ml Flush Syringe IV 10 ml PRN PRN Administration LINE FLUSH Tramadol HCl 50 mg 02/27/21 22:35 02/28/21 08:31 Tramadol 50 Mg Tab PO 50 mg Q4H PRN Administration Pain, Moderate (4-6) Trazodone HCl 50 mg 02/27/21 22:35 03/01/21 22:37 Trazodone 50 Mg Tab PO 50 mg QHS PRN Administration Insomnia Nutrition/Malnutrition Assess - Dietary Evaluation Nutrition/Malnutrition Findings: Nutrition Notes Start: 02/28/21 12:26 Freq: Status: Active Protocol: Document 02/28/21 12:26 CW (Rec: 02/28/21 12:31 CW [id number]) Nutrition Notes 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 Pt reports being diagnosed with DM x 17 years prior. Pt very knowledgable regarding DM managament and reports monitoring intakes of carbohydrates adn HgbA1c. Pt had no questions regarding DM with diet. Nutrition Intervention Change Diet Order: Continue diet as ordered Teaching Recipient Patient Teaching Methods Discussion Barriers to Learning No Barriers RD phone number provided Yes Patient aware of follow up options Yes Anticipated Discharge Needs: Cardiac Consistent Carbohydrate Diet Revisit per MD consult or patient Sign Off request: Additional Comments S/O for diet education not needed
--- NOTE | 2021-03-05 11:37 | Treadmill Report ---
[facility] Test Date: 2021-03-02 Test Time: 11:17:00 Pat Name: MAXIMINO MARIE III Department: Room: A468 1 Gender: M [employer]: Bree Selby : 1945 Requested By: JAYA WAKEFIELD Order Number: [id number] Gaby MD: Selwyn Vasquez Interpretive Statements Electronically Signed On 03-05-2021 11:37:35 EDT by Selwyn Vasquez
--- NOTE | 2021-03-05 12:05 | Progress Note ---
Assessment and Plan * Chest pain * Chest pain is currently resolved. * Cardiac catheterization reviewed (03/04/2021): Normal coronary anatomy angiographically. Moderate left ventricular dysfunction EF 35 to 40% however limited amount of contrast dye was used in setting of underlying kidney dysfunction. * Nonischemic cardiomyopathy * Echocardiogram reviewed (02/27/2021): LVEF is 20 to 25%. LV SF is moderately to severely decreased. Mild concentric LVH. Moderate to severe global hypokinesis of the left ventricle. Mild diastolic dysfunction is present (impaired relaxation pattern). RV SF is normal. RVSP is 33 mmHg * Severe nonischemic cardiomyopathy in setting of observed paroxysmal ventricular arrhythmias places patient at increased risk for sudden cardiac . LifeVest placement is ordered. Anticipate delivery this afternoon per case management. * Continue optimal therapy with BB, ACEI, statin, aspirin. * Diabetes * Management per primary team * Hypertension * Continue current antihypertensive regimen. * Sleep apnea * CPAP as ordered * Diastolic heart failure * Pending life vest placement * DVT prophylaxis * Lovenox LifeVest placement is anticipated this afternoon. Once in place, patient may discharge from cardiac standpoint. Patient should follow-up with Dr Hopson in our [place] office on 03/23/2021 at 1:30 PM. #[phone] This patient was seen in conjunction with Dr Vasquez who agrees with this assessment and plan of care - Patient Problems (1) Chest pain Current Visit: Yes Status: Acute Qualifiers: Chest pain type: chest pain on breathing Qualified Code(s): R07.1 - Chest pain on breathing; R07.81 - Pleurodynia (2) Diabetes Current Visit: Yes Status: Chronic Qualifiers: Diabetes mellitus type: type 2 (3) Hypertension Current Visit: Yes Status: Chronic Qualifiers: Hypertension type: essential hypertension Qualified Code(s): I10 - Essential (primary) hypertension (4) SOB (shortness of breath) Current Visit: Yes Status: Chronic (5) Sleep apnea Current Visit: Yes Status: Acute (6) Diastolic heart failure Current Visit: Yes Status: Acute (7) Nonischemic Cardiomyopathy Current Visit: Yes Status: Acute (8)Normal Coronary Arteries Current Visit: Yes Status: Acute Subjective Date of service: 03/05/21 Principal diagnosis: chest pain Interval history: Patient resting comfortably in bed. No chest pain or shortness of breath overnight. Telemetry reviewed: Sinus rhythm 88. 5 beat episode of V. tach noted overnight. Objective Last Vital Signs Temp 98.5 F 03/05/21 07:25 Pulse 68 03/05/21 09:08 Resp 20 03/05/21 07:25 BP 108/58 03/05/21 09:08 Pulse Ox 93 03/05/21 07:25 - Physical Examination General: No Apparent Distress HEENT: Positive: PERRL, Mucus Membranes Moist Neck: Positive: neck supple, trachea midline Cardiac: Positive: Reg Rate and Rhythm, S1/S2 Lungs: Positive: clear to auscultation, Normal Breath Sounds Neuro: Positive: Grossly Intact Abdomen: Positive: Soft, Active Bowel Sounds. Negative: Tender, Distended Skin: Positive: Clear Incision: Cardiac Cath Site Musculoskeletal: No Pain, Normal Range of Motion Extremities: Present: normal. Absent: edema - Labs and Meds CBC 03/05/21 Range/Units 06:55 WBC 8.9 (4.5-11.0) K/mm3 RBC 4.65 (3.65-5.03) M/mm3 Hgb 13.6 (11.8-15.2) gm/dl Hct 41.2 (35.5-45.6) % Plt Count 136 L (140-440) K/mm3 Comprehensive Metabolic Panel 03/05/21 Range/Units 06:55 Sodium 139 (137-145) mmol/L Potassium 4.4 (3.6-5.0) mmol/L Chloride 102.3 (98-107) mmol/L Carbon Dioxide 24 (22-30) mmol/L BUN 27 H (9-20) mg/dL Creatinine 1.7 H (0.8-1.3) mg/dL Glucose 141 H (75-100) mg/dL Calcium 8.9 (8.4-10.2) mg/dL - Imaging and Cardiology EKG: report reviewed, image reviewed Echo: report reviewed (Echocardiogram reviewed (02/27/2021): LVEF is 20 to 25%. LV SF is moderately to severely decreased. Mild concentric LVH. Moderate to severe global hypokinesis of the left ventricle. Mild diastolic dysfunction is present (impaired relaxation pattern). RV SF is normal. RVSP is 33 mmHg) Cardiac cath: report reviewed (Cardiac catheterization reviewed (03/04/2021): Normal coronary anatomy angiographically. Moderate left ventricular dysfunction EF 35 to 40% however limited amount of contrast dye was used in setting of underlying kidney dysfunction.) - Telemetry EKG Rhythm: Sinus Rhythm - EKG Sinus rhythms and dysrhythmias: sinus rhythm
--- NOTE | 2021-03-05 12:21 | Progress Note ---
Assessment and Plan Assessment and plan: #Chest pain Troponin slightly positive Cardiology on board Stress test showed reversible ischemia. LHC shows no significant occlusive disease.Per cath report, he has moderately reduced EF ~ 35 -40%. Needs a lifevest per cardiology. 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 Started on gentle fluids for now Hold lasix #Cardiomyopathy with an EF of 20 to 25% Echo shows low EF 20-25% Plan for lifevest per cardiology. Order placed. Awaiting Lifevest #Hypertension Continue blood pressure medication #Obstructive sleep apnea Weight loss. PCP to schedule sleep study #DVT prophylaxis-Lovenox History Interval history: 75-year-old male with a medical history of diabetes, coronary artery disease, hyperlipidemia, hypertension, ANNIA, bilateral knee replacements, chronic back pain who presents emergency room with complaints of substernal chest pain. Patient states that the chest pain is rating to his right chest. He rates it at 4/10 in severity. Due to his symptoms, he presented to the hospital. He had the ER, his EKG showed no acute changes. His troponin was 0.06. He was admitted to the hospital for evaluation. Cardiology consulted 02/28. Patients repeat troponin was 0.01. Repeat troponin after this was 0.06. Discharge cancelled. Plan for stress test on Thursday 03/01. He denies any chest pain this AM. Cardiology following. Possible stress test tomorrow 03/02: Patient is for stress test today, discussed with cardiology, EF is abnormal, KAYODE noted, lasix adjusted, decrease fluid to 50ml/hr to ensure no pulmonary edema. Norvasc held to do blood pressure. I also discussed his concern about his CPAP and restart to respiratory therapist to evaluate. Anticipate discharge in a.m. if renal function improves. 03/03. Cr 1.8. He has no complaints today. Repeat BMP tomorrow. Stress test result pending. 03/04. His stress test result is positive. Plan for LHC this AM. 03/05. LHC shows no significant occlusive disease. Per cath result, his EF is 35 - 40%. He needs a lifevest. He denies any chest pain. His renal function is still impaired. DCed lasix and started him on gentle fluids till AM. Plan to DC when lifeVest is available Hospitalist Physical - Physical exam Narrative exam: VITAL SIGNS: Reviewed. GENERAL: Awake HEAD: No signs of head trauma. EYES: Pupils are equal. Extraocular motions intact. MOUTH: Oropharynx is normal. NECK: No adenopathy, no JVD. CHEST: Chest with diminished breath sounds bilaterally. No wheezes, rales, or rhonchi. CARDIAC: normal S1 and S2, without murmurs, gallops, or rubs. ABDOMEN: Soft, non tender and non distended. No rebound or guarding, and no masses palpated. Bowel Sounds normal. MUSCULOSKELETAL: No edema NEUROLOGIC EXAM: Alert and oriented x3. No focal neurologic deficits SKIN: No obvious lesions - Constitutional Vitals: Temp Pulse Resp BP Pulse Ox 98.5 F 68 20 108/58 93 03/05/21 07:25 03/05/21 09:08 03/05/21 07:25 03/05/21 09:08 03/05/21 07:25 HEART Score - HEART Score EKG: Non-specific Age: > 65 Risk factors: > 3 risk factors or hx of atherosclerotic disease Troponin: Troponin T 0.019 ng/mL (0.00-0.029) 03/02/21 06:11 Troponin: 1-3x normal limit Results - Labs CBC & Chem 7: 03/05/21 06:55 03/05/21 06:55 Labs: Laboratory Last Values WBC 8.9 K/mm3 (4.5-11.0) 03/05/21 06:55 RBC 4.65 M/mm3 (3.65-5.03) 03/05/21 06:55 Hgb 13.6 gm/dl (11.8-15.2) 03/05/21 06:55 Hct 41.2 % (35.5-45.6) 03/05/21 06:55 MCV 89 fl (84-94) 03/05/21 06:55 MCH 29 pg (28-32) 03/05/21 06:55 MCHC 33 % (32-34) 03/05/21 06:55 RDW 14.2 % (13.2-15.2) 03/05/21 06:55 Plt Count 136 K/mm3 (140-440) L 03/05/21 06:55 Lymph % (Auto) 19.1 % (13.4-35.0) 03/04/21 04:45 [place] % (Auto) 8.9 % (0.0-7.3) H 03/04/21 04:45 Eos % (Auto) 1.5 % (0.0-4.3) 03/04/21 04:45 Baso % (Auto) 0.5 % (0.0-1.8) 03/04/21 04:45 Lymph # (Auto) 1.6 K/mm3 (1.2-5.4) 03/04/21 04:45 [place] # (Auto) 0.7 K/mm3 (0.0-0.8) 03/04/21 04:45 Eos # (Auto) 0.1 K/mm3 (0.0-0.4) 03/04/21 04:45 Baso # (Auto) 0.0 K/mm3 (0.0-0.1) 03/04/21 04:45 Seg Neutrophils % 70.0 % (40.0-70.0) 03/04/21 04:45 Seg Neutrophils # 5.8 K/mm3 (1.8-7.7) 03/04/21 04:45 PT 15.0 Sec. (12.2-14.9) H 03/04/21 04:45 INR 1.18 (0.87-1.13) H 03/04/21 04:45 Sodium 139 mmol/L (137-145) 03/05/21 06:55 Potassium 4.4 mmol/L (3.6-5.0) 03/05/21 06:55 Chloride 102.3 mmol/L (98-107) 03/05/21 06:55 Carbon Dioxide 24 mmol/L (22-30) 03/05/21 06:55 Anion Gap 17 mmol/L 03/05/21 06:55 BUN 27 mg/dL (9-20) H 03/05/21 06:55 Creatinine 1.7 mg/dL (0.8-1.3) H 03/05/21 06:55 Estimated GFR 48 ml/min 03/05/21 06:55 BUN/Creatinine Ratio 16 % 03/05/21 06:55 Glucose 141 mg/dL (75-100) H 03/05/21 06:55 POC Glucose 156 mg/dL (70-105) H 03/05/21 11:22 Hemoglobin A1c 6.9 % (4-6) H 02/28/21 02:41 Calcium 8.9 mg/dL (8.4-10.2) 03/05/21 06:55 Total Bilirubin 0.30 mg/dL (0.1-1.2) 02/27/21 15:03 AST 14 units/L (5-40) 02/27/21 15:03 ALT 15 units/L (7-56) 02/27/21 15:03 Alkaline Phosphatase 87 units/L (35-129) 02/27/21 15:03 Troponin T 0.019 ng/mL (0.00-0.029) 03/02/21 06:11 NT-Pro-B Natriuret Pep 586.0 pg/mL (0-900) 02/27/21 15:03 Total Protein 7.0 g/dL (6.3-8.2) 02/27/21 15:03 Albumin 3.7 g/dL (3.9-5) L 02/27/21 15:03 Albumin/Globulin Ratio 1.1 % 02/27/21 15:03 Triglycerides 97 mg/dL (2-149) 02/27/21 15:03 Cholesterol 113 mg/dL (50-199) 02/27/21 15:03 LDL Cholesterol Direct 55 mg/dL (50-130) 02/27/21 15:03 HDL Cholesterol 47 mg/dL (40-59) 02/27/21 15:03 Cholesterol/HDL Ratio 2.40 % 02/27/21 15:03 Urine Color Straw (Yellow) 02/28/21 Unknown Urine Turbidity Clear (Clear) 02/28/21 Unknown Urine pH 5.0 (5.0-7.0) 02/28/21 Unknown Ur Specific [place] 1.006 (1.003-1.030) 02/28/21 Unknown Urine Protein <15 mg/dl mg/dL (Negative) 02/28/21 Unknown Urine Glucose (UA) Neg mg/dL (Negative) 02/28/21 Unknown Urine Ketones Neg mg/dL (Negative) 02/28/21 Unknown Urine Blood Neg (Negative) 02/28/21 Unknown Urine Nitrite Neg (Negative) 02/28/21 Unknown Urine Bilirubin Neg (Negative) 02/28/21 Unknown Urine Urobilinogen < 2.0 mg/dL (<2.0) 02/28/21 Unknown Ur Leukocyte Esterase Neg (Negative) 02/28/21 Unknown Urine WBC (Auto) 1.0 /HPF (0.0-6.0) 02/28/21 Unknown Urine RBC (Auto) < 1.0 /HPF (0.0-6.0) 02/28/21 Unknown Urine Bacteria (Auto) 1+ /HPF (Negative) 02/28/21 Unknown Calcium Oxalate Crystal 1+ 02/28/21 Unknown Urine Mucus Few /HPF 02/28/21 Unknown Gregory/IV: Voiding Method Toilet Active Medications - Current Medications Current Medications: Generic Name Dose Route Start Last Admin Trade Name Freq PRN Reason Stop Dose Admin Acetaminophen 650 mg 02/27/21 22:23 03/01/21 22:38 Acetaminophen 325 Mg Tab PO 650 mg Q4H PRN Administration Pain MILD(1-3)/Fever >100.5/WYLIE Al Hydrox/Mg Hydrox/Simethicone 30 ml 02/27/21 22:23 Alum-Mag Hydroxide-Simethicone [id number] Oral Liqd 30 Ml PO Q4H PRN Indigestion Aspirin 81 mg 02/28/21 10:00 03/05/21 09:08 Aspirin Ec 81 Mg Tab PO 81 mg QDAY BACILIO Administration Atorvastatin Calcium 40 mg 02/28/21 22:00 03/04/21 21:37 Atorvastatin 40 Mg Tab PO 40 mg QHS BACILIO Administration Carvedilol 25 mg 03/01/21 12:00 03/05/21 09:08 Carvedilol 25 Mg Tab PO 25 mg BID BACILIO Administration Cholecalciferol 1,000 unit 02/28/21 10:00 03/05/21 09:08 Cholecalciferol (Vit D3) 1000 Unit (25 Mcg) Tab PO 1,000 unit QDAY BACILIO Administration Enoxaparin Sodium 40 mg 02/28/21 10:00 03/05/21 09:08 Enoxaparin 40 Mg/0.4 Ml Inj SUB-Q 40 mg QDAY ABCILIO Administration Protocol Famotidine 20 mg 03/02/21 12:00 03/05/21 09:08 Famotidine 20 Mg Tab PO 20 mg BID BACILIO Administration Glimepiride 2 mg 02/28/21 08:00 03/05/21 09:18 Glimepiride 2 Mg Tab PO 2 mg QDDIAB BACILIO Administration Hydralazine HCl 5 mg 02/28/21 00:48 Hydralazine 20 Mg/1 Ml Inj IV Q4H PRN Hypertension Hydralazine HCl 50 mg 03/01/21 12:00 03/04/21 21:38 Hydralazine 25 Mg Tab PO 50 mg BID BACILIO Administration Sodium Chloride 500 mls @ 50 mls/hr 03/04/21 10:00 Nacl 0.9% 500 Ml IV DIRECT BACILIO Lisinopril 40 mg 03/01/21 12:00 03/05/21 09:08 Lisinopril 40 Mg Tab PO 40 mg QDAY BACILIO Administration Magnesium Hydroxide 30 ml 02/27/21 22:23 Magnesium Hydroxide (Mom) Oral Liqd Udc PO Q4H PRN Constipation Metoclopramide HCl 10 mg 02/27/21 22:23 Metoclopramide 10 Mg/2 Ml Inj IV Q6H PRN Nausea And Vomiting Nitroglycerin 0.4 mg 02/27/21 22:23 Nitroglycerin 0.4 Mg Tab Subl SL .Q5MIN PRN Chest Pain Ondansetron HCl 4 mg 02/27/21 22:23 Ondansetron 4 Mg/2 Ml Inj IV Q8H PRN Nausea And Vomiting Senna 8.6 mg 02/28/21 10:00 03/05/21 09:10 Sennosides 8.6 Mg Tab PO 8.6 mg Q12HR BACILIO Administration Sodium Chloride 10 ml 02/28/21 10:00 03/05/21 09:09 Sodium Chloride 0.9% 10 Ml Flush Syringe IV 10 ml BID BACILIO Administration Sodium Chloride 10 ml 02/27/21 22:23 03/01/21 05:58 Sodium Chloride 0.9% 10 Ml Flush Syringe IV 10 ml PRN PRN Administration LINE FLUSH Tramadol HCl 50 mg 02/27/21 22:35 02/28/21 08:31 Tramadol 50 Mg Tab PO 50 mg Q4H PRN Administration Pain, Moderate (4-6) Trazodone HCl 50 mg 02/27/21 22:35 03/01/21 22:37 Trazodone 50 Mg Tab PO 50 mg QHS PRN Administration Insomnia Nutrition/Malnutrition Assess - Dietary Evaluation Nutrition/Malnutrition Findings: Nutrition Notes Start: 02/28/21 12:26 Freq: Status: Active Protocol: Document 02/28/21 12:26 CW (Rec: 02/28/21 12:31 CW [id number]) Nutrition Notes 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 Pt reports being diagnosed with DM x 17 years prior. Pt very knowledgable regarding DM managament and reports monitoring intakes of carbohydrates adn HgbA1c. Pt had no questions regarding DM with diet. Nutrition Intervention Change Diet Order: Continue diet as ordered Teaching Recipient Patient Teaching Methods Discussion Barriers to Learning No Barriers RD phone number provided Yes Patient aware of follow up options Yes Anticipated Discharge Needs: Cardiac Consistent Carbohydrate Diet Revisit per MD consult or patient Sign Off request: Additional Comments S/O for diet education not needed
[2021-03-05] MEDS ORDERED: SODIUM CHLORIDE 0.9% 1000 ML 1,000 ML IV SCH (12:30)
[2021-03-05] MEDS: hydrALAZINE 25 MG TAB PO SCH ×2 (15:18→21:25)
--- NOTE | 2021-03-05 17:40 | Electrocardiograph Report ---
[facility] Test Date: 2021-03-04 Test Time: 08:11:10 Pat Name: MAXIMINO MARIE III Department: Room: A468 1 Gender: M Medical Collections: SYLVIA : 1945 Requested By: CHE BRADY Order Number: [id number] Reading MD: Selwyn Vasquez Measurements Intervals [place] Rate: 68 P: 61 [place]: 195 QRS: 27 QRSD: 123 T: -2 QT: 429 QTc: 456 Interpretive Statements Sinus rhythm Nonspecific intraventricular conduction delay Compared to ECG 02/27/2021 15:02:18 Intraventricular conduction delay now present Electronically Signed On 03-05-2021 17:40:09 EDT by Selwyn Vasquez
[2021-03-06 05:32] LABS: Albumin 3.4 g/dL (3.9-5); Calcium 8.6 mg/dL (8.4-10.2)
[2021-03-06] MEDS: ASPIRIN EC 81 MG TAB PO SCH (09:11)
[2021-03-06] MEDS: GLIMEPIRIDE 2 MG TAB PO SCH (09:11)
[2021-03-06] MEDS: carvediloL 25 MG TAB PO SCH (09:11)
[2021-03-06] MEDS: ENOXAPARIN 40 MG/0.4 ML INJ SUB-Q SCH (09:11)
[2021-03-06] MEDS: FAMOTIDINE 20 MG TAB PO SCH (09:11)
[2021-03-06] MEDS: SENNOSIDES 8.6 MG TAB PO SCH (09:11)
[2021-03-06] MEDS: LISINOPRIL 40 MG TAB PO SCH (09:12)
[2021-03-06] MEDS: CHOLECALCIFEROL (VIT D3) 1000 UNIT (25 mcg) TAB PO SCH (09:12)
[2021-03-06] MEDS: hydrALAZINE 25 MG TAB PO SCH (09:12)
--- NOTE | 2021-03-06 11:59 | Progress Note ---
Assessment and Plan * Chest pain * Chest pain is currently resolved. * Cardiac catheterization reviewed (03/04/2021): Normal coronary anatomy angiographically. Moderate left ventricular dysfunction EF 35 to 40% however limited amount of contrast dye was used in setting of underlying kidney dysfunction. * Nonischemic cardiomyopathy * Echocardiogram reviewed (02/27/2021): LVEF is 20 to 25%. LV SF is moderately to severely decreased. Mild concentric LVH. Moderate to severe global hypokinesis of the left ventricle. Mild diastolic dysfunction is present (impaired relaxation pattern). RV SF is normal. RVSP is 33 mmHg * Severe nonischemic cardiomyopathy in setting of observed paroxysmal ventricular arrhythmias places patient at increased risk for sudden cardiac . LifeVest is in place. Consult for outpatient cardiac rehab. We will plan to repeat echo as outpatient in 3 months. * Continue optimal therapy with Coreg 25 mg twice daily, lisinopril 40 mg p.o., atorvastatin 40 mg nightly, aspirin 81 mg daily. * Management per primary team * Hypertension * Continue current antihypertensive regimen. * Sleep apnea * CPAP as ordered * Diastolic heart failure * LifeVest in place * DVT prophylaxis * Lovenox LifeVest is in place. Outpatient cardiac rehab is consulted. Once outpatient cardiac rehab is in place, patient may discharge from cardiac standpoint. Patient should follow-up with Dr Hopson in our [place] office on 03/23/2021 at 1:30 PM. #[phone] This patient was seen in conjunction with Dr Vasquez who agrees with this assessment and plan of care - Patient Problems (1) Chest pain Current Visit: Yes Status: Acute Qualifiers: Chest pain type: chest pain on breathing Qualified Code(s): R07.1 - Chest pain on breathing; R07.81 - Pleurodynia (2) Diabetes Current Visit: Yes Status: Chronic Qualifiers: Diabetes mellitus type: type 2 (3) Hypertension Current Visit: Yes Status: Chronic Qualifiers: Hypertension type: essential hypertension Qualified Code(s): I10 - Essential (primary) hypertension (4) SOB (shortness of breath) Current Visit: Yes Status: Chronic (5) Sleep apnea Current Visit: Yes Status: Acute (6) Diastolic heart failure Current Visit: Yes Status: Acute (7) Nonischemic Cardiomyopathy Current Visit: Yes Status: Acute (8)Normal Coronary Arteries Current Visit: Yes Status: Acute Subjective Date of service: 03/06/21 Principal diagnosis: chest pain Interval history: Patient resting comfortably in bed. No chest pain or shortness of breath overnight. Telemetry reviewed: Sinus rhythm 73. No events Objective Last Vital Signs Temp 98.2 F 03/06/21 08:07 Pulse 77 03/06/21 09:12 Resp 20 03/06/21 08:07 BP 107/67 03/06/21 09:12 Pulse Ox 92 03/06/21 09:09 - Physical Examination General: No Apparent Distress HEENT: Positive: PERRL, Mucus Membranes Moist Neck: Positive: neck supple, trachea midline Cardiac: Positive: Reg Rate and Rhythm, S1/S2 Lungs: Positive: clear to auscultation, Normal Breath Sounds Neuro: Positive: Grossly Intact Abdomen: Positive: Soft, Active Bowel Sounds. Negative: Tender, Distended Skin: Positive: Clear Incision: Cardiac Cath Site Musculoskeletal: No Pain, Normal Range of Motion Extremities: Present: normal. Absent: edema - Labs and Meds Cardiac Enzymes 03/06/21 Range/Units 04:18 AST 15 (5-40) units/L Comprehensive Metabolic Panel 03/06/21 Range/Units 04:18 Sodium 140 (137-145) mmol/L Potassium 3.8 (3.6-5.0) mmol/L Chloride 105.2 (98-107) mmol/L Carbon Dioxide 24 (22-30) mmol/L BUN 29 H (9-20) mg/dL Creatinine 1.7 H (0.8-1.3) mg/dL Glucose 131 H (75-100) mg/dL Calcium 8.6 (8.4-10.2) mg/dL AST 15 (5-40) units/L ALT 20 (7-56) units/L Alkaline Phosphatase 85 (35-129) units/L Total Protein 6.7 (6.3-8.2) g/dL Albumin 3.4 L (3.9-5) g/dL - Imaging and Cardiology EKG: report reviewed, image reviewed Echo: report reviewed (Echocardiogram reviewed (02/27/2021): LVEF is 20 to 25%. LV SF is moderately to severely decreased. Mild concentric LVH. Moderate to severe global hypokinesis of the left ventricle. Mild diastolic dysfunction is present (impaired relaxation pattern). RV SF is normal. RVSP is 33 mmHg) Cardiac cath: report reviewed (Cardiac catheterization reviewed (03/04/2021): Normal coronary anatomy angiographically. Moderate left ventricular dysfunction EF 35 to 40% however limited amount of contrast dye was used in setting of underlying kidney dysfunction.) - Telemetry EKG Rhythm: Sinus Rhythm - EKG Sinus rhythms and dysrhythmias: sinus rhythm
--- NOTE | 2021-03-06 12:02 | Discharge Summary ---
Providers - Providers Date of Admission: 02/27/21 21:31 Date of discharge: 03/06/21 Attending physician: MABEL NOBLE 02/27/21 22:28 Consult to Physician [CONS] Stat Comment: Consulting Provider: DANIEL KRISHNAMURTHY Physician Instructions: Reason For Exam: chest pain 03/06/21 10:57 Consult to Cardiac Rehabilitation [CONS] Routine Reason For Exam: cardiomyopathy Additional Notes/Special Instructions: Referral to outpatient cardiac rehab Primary care physician: SLATE TRIMMER Hospitalization Condition: Critical Hospital course: #Chest pain Troponin slightly positive Cardiology consulted Stress test showed reversible ischemia. LHC shows no significant occlusive disease.Per cath report, he has moderately reduced EF ~ 35 -40%. 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 #Cardiomyopathy with an EF of 20 to 25% Echo shows low EF 20-25% patient is on LifeVest no diuretics at this time discussed with cardiology continue beta-blockers and ANITA inhibitors follow-up with cardiology in 1 week #Hypertension Continue blood pressure medication #Obstructive sleep apnea Weight loss. PCP to schedule outpatient sleep study History Interval history: 75-year-old male with a medical history of diabetes, coronary artery disease, hyperlipidemia, hypertension, ANNIA, bilateral knee replacements, chronic back pain who presents emergency room with complaints of substernal chest pain. Patient states that the chest pain is rating to his right chest. He rates it at 4/10 in severity. Due to his symptoms, he presented to the hospital. He had the ER, his EKG showed no acute changes. His troponin was 0.06. He was admitted to the hospital for evaluation. Cardiology consulted 02/28. Patients repeat troponin was 0.01. Repeat troponin after this was 0.06. Discharge cancelled. Plan for stress test on Thursday 03/01. He denies any chest pain this AM. Cardiology following. Possible stress test tomorrow 03/02: Patient is for stress test today, discussed with cardiology, EF is abnormal, AKYODE noted, lasix adjusted, decrease fluid to 50ml/hr to ensure no pulmonary edema. Norvasc held to do blood pressure. I also discussed his concern about his CPAP and restart to respiratory therapist to evaluate. Anticipate discharge in a.m. if renal function improves. 03/03. Cr 1.8. He has no complaints today. Repeat BMP tomorrow. Stress test result pending. 03/04. His stress test result is positive. Plan for LHC this AM. 03/05. LHC shows no significant occlusive disease. Per cath result, his EF is 35 - 40%. He needs a lifevest. He denies any chest pain. His renal function is still impaired. DCed lasix and started him on gentle fluids till AM. Plan to DC when lifeVest is available 03/06 patient is alert and oriented and not in any distress and he offers no specific complaints. Cardiology note reviewed and discussed with cardiology he is medically stable for discharge. Also discussed with pillowcase turner and patient has been set up for outpatient cardiac rehab Disposition: DC-01 TO HOME OR SELFCARE Final Discharge Diagnosis (Prints w/discharge instructions): Nonischemic cardiomyopathy Time spent for discharge: 38 min Core Measure Documentation - Palliative Care Palliative Care/ Comfort Measures: Not Applicable - Core Measures Any of the following diagnoses?: heart failure - Heart Failure Discharge Requirements ANITA/ARB for LVSD if EF <40%: Yes Beta tasia at discharge: Yes Exam - Constitutional Vitals: Temp Pulse Resp BP Pulse Ox 98.2 F 77 20 107/67 92 03/06/21 08:07 03/06/21 09:12 03/06/21 08:07 03/06/21 09:12 03/06/21 09:09 General appearance: Present: no acute distress, obese - EENT Eyes: Present: PERRL, EOM intact ENT: hearing intact, clear oral mucosa - Neck Neck: Present: supple, normal ROM. Absent: masses or JVD - Respiratory Respiratory effort: normal Respiratory: bilateral: CTA - Cardiovascular Rhythm: regular Heart Sounds: Present: S1 & S2 - Extremities Extremities: No edema - Abdominal General gastrointestinal: Present: soft, non-tender Male genitourinary: Present: deferred - Rectal Rectal Exam: deferred - Integumentary Integumentary: Present: clear - Musculoskeletal Musculoskeletal: strength equal bilaterally - Neurologic Neurologic: no focal deficits, moves all extremities Plan Activity: advance as tolerated, other (Outpatient PT/OT/cardiac rehab) Weight Bearing Status: Weight Bear as Tolerated Diet: regular, low fat, low cholesterol, low salt, diabetic, other (Fluid restriction to 1500 mL/day) Special Instructions: restrict fluid intake to (1500 mL/day), record daily weights Follow up with: PRIMARY CARE, [Primary Care Provider] - 3-5 Days TOMI PEARCE MD [Staff Physician] - 7 Days Forms: Discharge Signature Page Prescriptions: Glimepiride [Amaryl] 2 mg PO QDDIAB #30 tablet hydrALAZINE [Apresoline TAB] 50 mg PO BID #60 tablet carvediloL [Coreg] 25 mg PO BID #60 tablet AtorvaSTATin [Lipitor] 40 mg PO QHS #30 tablet Famotidine [Pepcid] 20 mg PO BID #60 tablet lisinopriL [Zestril TAB] 40 mg PO QDAY #30
[2021-03-06 12:57] VITALS: BP 137/72
== END 2021-03-06 15:10 | disposition home health service (06) | DRG 286 ==
LOC: ED 14:37 → OBSVTOIN 21:31 → 4A 21:31
PROVIDERS: ADMIT Internal Medicine Geriatric Medicine; ATTEND Internal Medicine
PROC: 4A023N7 Measurement of Cardiac Sampling and Pressure, Left Heart, Percutaneous Approach (ICD-10-PCS; principal; 2021-03-04)
PROC: B2111ZZ Fluoroscopy of Multiple Coronary Arteries using Low Osmolar Contrast (ICD-10-PCS; 2021-03-04)
PROC: B2151ZZ Fluoroscopy of Left Heart using Low Osmolar Contrast (ICD-10-PCS; 2021-03-04)
DX: I11.0 Hypertensive heart disease with heart failure (principal); N17.0 Acute kidney failure with tubular necrosis; I50.43 Acute on chronic combined systolic (congestive) and diastolic (congestive) heart failure; I42.9 Cardiomyopathy, unspecified; E11.9 Type 2 diabetes mellitus without complications; G47.33 Obstructive sleep apnea (adult) (pediatric); E78.5 Hyperlipidemia, unspecified; Z79.899 Other long term (current) drug therapy; Z79.891 Long term (current) use of opiate analgesic; Z79.01 Long term (current) use of anticoagulants; Z96.659 Presence of unspecified artificial knee joint; R79.89 Other specified abnormal findings of blood chemistry; Z82.49 Family history of ischemic heart disease and other diseases of the circulatory system; Z83.3 Family history of diabetes mellitus; Z79.82 Long term (current) use of aspirin; I25.10 Atherosclerotic heart disease of native coronary artery without angina pectoris; Z95.5 Presence of coronary angioplasty implant and graft; M19.90 Unspecified osteoarthritis, unspecified site
CPT/HCPCS: 36415; 71046; 78452; 80048; 80053; 80061; 81001; 82962; 83036; 83880; 84484; 85025; 85027; 85610; 93005; 93017; 93306; 93458; 94660; 96365; 96375; G0378; A9270-GY; A9502; C1894; J0360; J1644; J1650; J1940; J2250; J2785; J3010; J7030; J7040; Q9967

== ENCOUNTER 2021-04-02 13:36 | Emergency (ER) | payer MEDICARE, OTHER ==
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
[2021-04-02] MEDS ORDERED: oxyCODONE /ACETAMINOPHEN 5-325MG TAB PO ONE (13:50)
--- NOTE | 2021-04-02 15:41 | XRay Report ---
RIGHT FOOT 3 VIEW(S) INDICATION / CLINICAL INFORMATION: right foot pain COMPARISON: None available. FINDINGS: BONES / JOINT(S): Minimally displaced intra-articular fracture involving the base of the great toe pr oximal phalanx at the MTP joint. No dislocation. No significant arthritis. Diffuse osteopenia. SOFT TISSUES: Soft tissue swelling and edema around the fracture site. ADDITIONAL FINDINGS: None. Signer Name: Zay Beck MD Signed: 04/02/2021 3:37 PM Workstation Name: [id number]
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
[2021-04-02] MEDS ORDERED: ACETAMINOPHEN 325 MG TAB PO ONE (15:45)
[2021-04-02 16:54] VITALS: BP 127/87
--- NOTE | 2021-04-03 10:17 | Electrocardiograph Report ---
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 Electronically Signed On 04-03-2021 10:17:29 EDT by Selwyn Vasquez
== END 2021-04-02 16:55 | disposition home or self-care (01) ==
LOC: ED 13:36
DX: R07.89 Other chest pain (principal); M79.671 Pain in right foot; I11.0 Hypertensive heart disease with heart failure; I50.9 Heart failure, unspecified; Z79.899 Other long term (current) drug therapy; V89.2XXA Person injured in unspecified motor-vehicle accident, traffic, initial encounter; Y93.89 Activity, other specified; Y92.488 Other paved roadways as the place of occurrence of the external cause; Y99.8 Other external cause status
CPT/HCPCS: 71046; 93005; 99284